=== PATIENT | female | born 1935 | race African-American/Black ===

== ENCOUNTER 2017-10-01 10:20 | Inpatient (IN) | payer MEDICARE, MEDICAID ==
--- NOTE | 2017-10-01 10:41 | ED Physician Chart ---
ED Chief Complaint/HPI - Patient Information Date Seen:: 10/01/17 Time Seen:: 10:20 Chief Complaint:: Weakness History of Present Illness:: onset x 3 days of Weakness, AMS, and ALOC with abnormal lab tests this morning; no report of LOC, trauma, H/As, S/T, neck pain, C/P, SOB, Abd. Pain, A/N/V/D/C, fever, chills, or urinary s/s Historian:: Patient, EMS Review:: Nurse's Note Reviewed, Old Chart Reviewed, EMS run form Reviewed ED Review of Systems - Review of Systems General/Constitutional: No fever, No chills, No weight loss, Weakness, No diaphoresis, No edema, No loss of appetite Skin: No skin lesions, No rash, No bruising Head: No headache, No light-headedness Eyes: No loss of vision, No pain, No diplopia ENT: No earache, No nasal drainage, No sore throat, No tinnitus Neck: No neck pain, No swelling, No thyromegaly, No stiffness, No mass noted Cardio Vascular: No chest pain, No palpitations, No PND, No orthopnea, No edema Pulmonary: No SOB, No cough, No sputum, No wheezing GI: No nausea, No vomiting, No diarrhea, No pain, No melena, No hematochezia, No constipation, No hematemesis G/U: No dysuria, No frequency, No hematuria, No nacturia Webmethods Architect: No vaginal discharge, No abnormal vaginal bleed, No contraction Musculoskeletal: No bone or joint pain, No back pain, No muscle pain Endocrine: No polyuria, No polydipsia Psychiatric: No prior psych history, No depression, No anxiety, No suicidal ideation, No homicidal ideation, No auditory hallucination, No visual hallucination Hematopoietic: No bruising, No lymphadenopathy Allergic/Immuno: No urticaria, No angioedema Neurological: No syncope, No focal symptoms, Weakness, No paresthesia, No headache, No seizure, No dizziness, Confusion, No vertigo ED Past Medical History - Past Medical History Obtainable: Yes Past Medical History: HTN, DM, CAD, Asthma/COPD, Dyslipidemia, PUD/GERD, Dementia Family History: Diabetes Melitus, HTN Social History: Non Smoker, No Alcohol, No Drug Use, , Care Facility Surgical History: other (Left BKA) Psychiatricy History: Dementia Medication: Reviewed Family Medical History - Family Member Mother History Unknown: Yes ED Physical Exam - Physical Examination General/Constitutional: Awake, Well-developed, well-nourished, Alert, No distress, GCS 15, Non-toxic appearing, Ambulatory Head: Atraumatic Eyes: Lids, conjuctiva normal, PERRL, EOMI Skin: Nl inspection, No rash, No skin lesions, No ecchymosis, Well hydrated, No lymphadenopathy ENMT: External ears, nose nl, TM canals nl, Nasal exam nl, Lips, teeth, gums nl , Oropharynx nl, Tonsils nl Neck: Nontender, Full ROM w/o pain, No JVD, No nuchal rigidity, No bruit, No mass, No stridor Respiratory: Nl effort/Exclusion, Clear to Auscultation, No Wheeze/Rhonchi/Rales Cardio Vascular: RRR, No murmur, gallop, rubs, NL S1 S2, Carotid/Femoral/Distal pulses equal bilaterally GI: No tenderness/rebounding/guarding, No organomegaly, No hernia, Normal BS's, Nondistended, No mass/bruits, No McBurney tenderness : No CVA tenderness Extremities: No tenderness or effusion, Full ROM, normal strength in all extremities, No edema, Normal digits & nails Neuro/Psych: Alert/oriented, DTR's symmetric, Normal sensory exam, Normal motor strength, Judgement/insight normal, Mood normal, Normal gait, No focal deficits Misc: Normal back, No paraspinal tenderness ED Labs/Radiology/EKG Results - Lab Results Comments:: H/H: 7.4/22.7; BUN: 34; Cr: 1.8; Na+: 134; U/A: + Pyuria - EKG Interpretations EKG Time:: 10:49 Rate & Rhythm: 76' NSR Comments:: non-specific st-t changes ED Septic Shock - . Is Septic Shock (SBP<90, OR Lactate>4 mmol\L) present?: No ED Reassessment (Disposition) - Reassessment Reassessment Condition:: Improved - Diagnosis Diagnosis:: Dx: Anemia; Weakness; UTI; Hyponatremia; GI Bleed; Dehydration - Aftercare/Follow up Instructions Aftercare/Follow-Up Instructions:: Counseled pt regarding lab results/diagnosis & need follow up, Counseled pt & family regarding lab results/diagnosis & need follow up - Patient Disposition Discharge/Transfer:: Acute Care w/in this hosp Accepting Physician:: Dr. Rush Time Called:: 1230 Time Responded:: 12:30 Admitted to:: Telemetry Spoke to:: Dr. Rush Admitting Medical Physician:: Dr. Rush Condition at Disposition:: Stable, Improved
[2017-10-01 11:15] LABS: % BASOPHILS 0.4 % (0.0-2.0); % EOSINOPHILS 2.5 % (0.0-5.0); % LYMPHOCYTES 33.2 % (20.0-50.0); % MONOCYTES 17.8 % (2.0-10.0); % NEUTROPHILS 46.1 % (40.0-80.0); EOSINOPHILE ABSOLUTE 0.2 Th/cmm (0.1-0.4); HEMATOCRIT 22.7 % (41.0-60); LYMPHOCYTE ABSOLUTE 2.1 Th/cmm (1.5-3.0); MEAN CELL VOLUME 99.2 fl (81-100); MEAN CORPUSCULAR HEMOGLOBIN 32.3 pg (27.0-31.0); MEAN CORPUSCULAR HGB CONC 32.6 pg (28.0-36.0); MEAN PLATELET VOLUME 6.1 fl; MONOCYTE ABSOLUTE 1.1 Th/cmm (0.3-1.0); NEUTROPHILE ABSOLUTE 2.8 Th/cmm (1.8-8.0); PLATELET COUNT 158 Th/cmm (150-400); RED BLOOD COUNT 2.29 Mil/cmm (3.80-5.20); RED CELL DISTRIBUTION WIDTH 17.5 % (11.5-20.0); WHITE BLOOD COUNT 6.2 Th/cmm (4.8-10.8)
[2017-10-01 11:17] LABS: HEMOGLOBIN 7.4 gm/dL (12-16)
[2017-10-01 11:17] LABS: URINE SOURCE MIDSTREAM
[2017-10-01 11:18] LABS: URINE MICROSCOPIC INDICATED? YES
[2017-10-01 11:19] LABS: INR 0.96 (0.5-1.4)
[2017-10-01 11:24] LABS: TROP I 0.01 ng/mL (0.01-0.05)
[2017-10-01 11:26] LABS: ALB/GLOB RATIO 0.6 (1.0-1.8); ALBUMIN 3.4 gm/dL (3.7-5.3); ALKALINE PHOSPHATASE 67 U/L (34-104); ANION GAP 12.9 (7.0-16.0); BILIRUBIN,TOTAL 0.3 mg/dL (0.3-1.0); BUN - UREA NITROGEN 34 mg/dL (7-25); CALCIUM SERUM 9.4 mg/dL (8.6-10.3); CARBON DIOXIDE 24.1 mEq/L (21.0-31.0); CHLORIDE 102 mEq/L (98-107); CREATININE - SERUM 1.8 mg/dL (0.6-1.2); CREATININE KINASE 41 U/L (30-223); GLUCOSE 134 mg/dL (70-105); SGOT 17 U/L (13-39); SGPT/ALT 6 U/L (7-52); SODIUM SERUM 134 mEq/L (136-145); TOTAL PROTEIN,SERUM 8.9 gm/dL (6.0-8.3)
[2017-10-01 11:38] LABS: URINE BILIRUBIN NEGATIVE (NEGATIVE); URINE CLARITY HAZY (CLEAR); URINE COLOR RED; URINE GLUCOSE (UA) NEGATIVE (NEGATIVE); URINE KETONE NEGATIVE (NEGATIVE)
[2017-10-01 11:39] LABS: URINE BLOOD LARGE (NEGATIVE); URINE PH 6.5 (4.6 - 8.0); URINE PROTEIN 30 mg/dL (NEGATIVE)
[2017-10-01 11:40] LABS: URINE LEUKOCYTE ESTERASE LARGE (NEGATIVE); URINE NITRATE POSITIVE (NEGATIVE)
[2017-10-01 11:43] LABS: URINE BACTERIA MANY /hpf (NONE SEEN); URINE EPITHELIAL CELLS FEW /lpf (FEW); URINE RBC >100 /hpf (0-5)
[2017-10-01] MEDS ORDERED: Mag Sulfate 2gm/50mL Premix 2 GM/50 ML BAG IV PRN (13:38)
[2017-10-01] MEDS ORDERED: Potassium Chloride 20 mEq ER Tab PO PRN (13:38)
[2017-10-01] MEDS ORDERED: Potassium Chloride 40 MEQ, Lidocaine 1% 20mL Vial 25 MG in Sodium Chloride 0.9% 250 ML IV PRN (13:38)
[2017-10-01] MEDS ORDERED: Morphine Sulfate 4 mg/mL 1mL Syr IVP PRN (13:38)
[2017-10-01] MEDS ORDERED: cefTRIAXone 1 GM in Sodium Chloride 0.9% 50 ML IV SCH (15:00)
[2017-10-01] MEDS ORDERED: KCL 20mEq/100mL Premix 40 MEQ/200 ML PIGGYBACK IV PRN (15:52)
[2017-10-01] MEDS: Sodium Chloride 0.9% 1,000 ML IV SCH (17:30)
[2017-10-01 18:35] VITALS: BP 119/60
[2017-10-02 05:56] LABS: ANION GAP 9.6 (7.0-16.0); BUN - UREA NITROGEN 32 mg/dL (7-25); CALCIUM SERUM 8.7 mg/dL (8.6-10.3); CARBON DIOXIDE 23.8 mEq/L (21.0-31.0); CHLORIDE 105 mEq/L (98-107); CREATININE - SERUM 1.8 mg/dL (0.6-1.2); GLUCOSE 91 mg/dL (70-105); POTASSIUM SERUM 4.4 mEq/L (3.5-5.1); SODIUM SERUM 134 mEq/L (136-145)
[2017-10-02] MEDS ORDERED: INSULIN ASPART SLIDING SCALE 100 UNITS/ML UNIT SUBQ SCH (07:30)
[2017-10-02] MEDS ORDERED: Sodium Chloride 0.9% 1,000 ML IV SCH (08:32)
[2017-10-02] MEDS: Sodium Chloride 0.9% 1,000 ML IV SCH (09:34)
[2017-10-02] MEDS: Ferrous Sulfate 325 MG TAB PO SCH (09:34)
--- NOTE | 2017-10-02 09:37 | History & Physical ---
ADMIT DATE: 10/01/2017 CHIEF COMPLAINT: Severe anemia and dysuria. HISTORY OF PRESENT ILLNESS: The patient is a pleasant 82-year-old female. She presents from group home facility. She has history of chronic pain, vitamin deficiency anemia, constipation and glaucoma. She had been experiencing dysuria and increased urinary frequency. On routine lab, she was also found to have severe anemia; however, it was slightly elevated in the ER. She was admitted for further workup and treatment. PAST MEDICAL HISTORY: Significant for vitamin deficiency anemia, coronary artery disease, malnutrition and glaucoma. SOCIAL HISTORY: Denies any alcohol, tobacco or drug abuse. FAMILY HISTORY: Noncontributory. ALLERGIES: No known drug allergies. SURGICAL HISTORY: No recent major surgeries. MEDICATIONS: Home medications reviewed and reconciled. REVIEW OF SYSTEMS: GENERAL: Positive recent fatigue, decreased appetite. HEENT: No recent head trauma or change in vision, taste, hearing, or smell. Oral, denies any pain or discharge. NECK: No recent tracheal deviation. ABDOMEN: No recent pain or distention. SKIN: She has history of poor turgor. MUSCULOSKELETAL: Positive for unsteady gait and muscle weakness. PSYCHIATRIC: No history of psychosis or hallucinations. EYES: She has history of glaucoma. GENITOURINARY: Positive for recent dysuria, increased urinary frequency. NEUROLOGIC: No recent seizure or CV activity. PHYSICAL EXAMINATION: VITAL SIGNS: Temperature 96.9 degrees, heart rate is 76, respirations are 18, blood pressure 112/58. Currently, no pain. GENERAL: No acute distress, awake, pleasant, alert. HEENT: No acute issues. NECK: Trachea is midline. CARDIOVASCULAR: Regular rate and rhythm. ABDOMEN: Nontender, nondistended. SKIN: Poor turgor. MUSCULOSKELETAL: She appears cachectic. She has decreased muscle strength in upper and lower extremities. NEUROLOGIC: Stable. PSYCHIATRIC: No psychosis or hallucinations. RESPIRATORY: Decreased breath sounds bilaterally. GENITOURINARY: No hematuria is noted. ABDOMEN: No pain or distention. Bowel sounds are present. LABORATORY DATA AND DIAGNOSTIC STUDIES: UA is positive for UTI. White count of 6.2, hemoglobin is 7.4, platelet count is 158,000. Sodium 134, potassium 5.0, chloride 102, bicarb 24.1, BUN 34, creatinine 1.8, glucose 116. Chest x-ray is pending and repeat CBC for today is pending as well. ASSESSMENT: 1. Severe anemia. 2. Vasomotor nephropathy. 3. Hyponatremia. 4. Urinary tract infection. 5. Unsteady gait. 6. Muscle weakness. PLAN: The patient is on IV fluids and Rocephin 1 g IV daily. Follow up on stool occult blood. I will order SCDs, hold heparin. I will also follow up on the repeat CBC and stool occult blood as well. Discussed care plan with the patient. Chest x-ray has been ordered as well. JOB# [id number]
[2017-10-02] MEDS ORDERED: Probiotic Screen MC PRN (10:18)
[2017-10-02] MEDS: Lactobacillus Rhamnosus GG 15 Billion CFU CAP.SPRINK PO SCH (10:48)
--- NOTE | 2017-10-02 13:31 | Diagnostic Imaging Report ---
Portable chest x-ray HISTORY: Shortness of breath The heart size appears generous. Atherosclerotic calcification seen in the aorta. The lungs are hyperexpanded along with accentuation of the lower interstitial lung markings. Findings may be associated with COPD. A linear density is noted in the right lower lobe that may be associated with scarring or subsegmental atelectasis. No other focal processes. Mild scoliosis and diffuse degenerative changes seen to the spine. IMPRESSION: 1. Pulmonary hyperexpansion along with accentuation of the lower interstitial lung markings. Findings may be associated with COPD 2. Linear density within the right lower lobe that may be associated with scarring or subsegmental atelectasis 3. Cardiomegaly with atherosclerotic vascular changes
[2017-10-03] MEDS: Sodium Chloride 0.9% 1,000 ML IV SCH ×2 (01:50→23:17)
[2017-10-03 07:50] LABS: ANION GAP 8.5 (7.0-16.0); BUN - UREA NITROGEN 27 mg/dL (7-25); CALCIUM SERUM 8.6 mg/dL (8.6-10.3); CARBON DIOXIDE 21.9 mEq/L (21.0-31.0); CHLORIDE 111 mEq/L (98-107); CREATININE - SERUM 1.6 mg/dL (0.6-1.2); GLUCOSE 101 mg/dL (70-105); POTASSIUM SERUM 4.4 mEq/L (3.5-5.1); SODIUM SERUM 137 mEq/L (136-145)
--- NOTE | 2017-10-03 09:01 | General Progress Note ---
Subjective - Review of Systems Service Date: 10/03/17 Subjective: Pt seen and eval. Resting in bed. No n,v,d or cp. Stool collected this am for occult blood. No fevers or chills. Objective - Results Result Diagrams: 10/01/17 11:00 10/03/17 06:00 Recent Labs: Laboratory Last Values WBC 6.2 Th/cmm (4.8-10.8) 10/01/17 11:00 RBC 2.29 Mil/cmm (3.80-5.20) L 10/01/17 11:00 Hgb 7.4 gm/dL (12-16) L* 10/01/17 11:00 Hct 22.7 % (41.0-60) L 10/01/17 11:00 MCV 99.2 fl (81-100) 10/01/17 11:00 MCH 32.3 pg (27.0-31.0) H 10/01/17 11:00 MCHC Differential 32.6 pg (28.0-36.0) 10/01/17 11:00 RDW 17.5 % (11.5-20.0) 10/01/17 11:00 Plt Count 158 Th/cmm (150-400) 10/01/17 11:00 MPV 6.1 fl 10/01/17 11:00 Neutrophils % 46.1 % (40.0-80.0) 10/01/17 11:00 Lymphocytes % 33.2 % (20.0-50.0) 10/01/17 11:00 Monocytes % 17.8 % (2.0-10.0) H 10/01/17 11:00 Eosinophils % 2.5 % (0.0-5.0) 10/01/17 11:00 Basophils % 0.4 % (0.0-2.0) 10/01/17 11:00 PT 10.0 SECONDS (9.5-11.5) 10/01/17 11:00 INR 0.96 (0.5-1.4) 10/01/17 11:00 PTT (Actin FS) 25.7 SECONDS (26.0-38.0) L 10/01/17 11:00 Sodium 137 mEq/L (136-145) 10/03/17 06:00 Potassium 4.4 mEq/L (3.5-5.1) 10/03/17 06:00 Chloride 111 mEq/L (98-107) H 10/03/17 06:00 Carbon Dioxide 21.9 mEq/L (21.0-31.0) 10/03/17 06:00 Anion Gap 8.5 (7.0-16.0) 10/03/17 06:00 BUN 27 mg/dL (7-25) H 10/03/17 06:00 Creatinine 1.6 mg/dL (0.6-1.2) H 10/03/17 06:00 Est GFR ( Amer) TNP 10/03/17 06:00 Est GFR (Non-Af Amer) TNP 10/03/17 06:00 BUN/Creatinine Ratio 16.9 10/03/17 06:00 Glucose 101 mg/dL (70-105) 10/03/17 06:00 POC Glucose 116 MG/DL (70 - 105) H 10/02/17 07:35 Whole Bld Lactic Acid 1.68 mmol/L (0.60-1.99) 10/01/17 11:00 Calcium 8.6 mg/dL (8.6-10.3) 10/03/17 06:00 Magnesium 2.0 mg/dL (1.9-2.7) 10/01/17 11:00 Total Bilirubin 0.3 mg/dL (0.3-1.0) 10/01/17 11:00 AST 17 U/L (13-39) 10/01/17 11:00 ALT 6 U/L (7-52) L 10/01/17 11:00 Alkaline Phosphatase 67 U/L (34-104) 10/01/17 11:00 Creatine Kinase 41 U/L (30-223) 10/01/17 11:00 Troponin I 0.01 ng/mL (0.01-0.05) 10/01/17 11:00 Total Protein 8.9 gm/dL (6.0-8.3) H 10/01/17 11:00 Albumin 3.4 gm/dL (3.7-5.3) L 10/01/17 11:00 Globulin 5.5 gm/dL 10/01/17 11:00 Albumin/Globulin Ratio 0.6 (1.0-1.8) L 10/01/17 11:00 Urine Source MIDSTREAM 10/01/17 11:10 Urine Color RED 10/01/17 11:10 Urine Clarity HAZY (CLEAR) 10/01/17 11:10 Urine pH 6.5 (4.6 - 8.0) 10/01/17 11:10 Ur Specific [place] 1.015 (1.005-1.030) 10/01/17 11:10 Urine Protein 30 mg/dL (NEGATIVE) H 10/01/17 11:10 Urine Glucose (UA) NEGATIVE mg/dL (NEGATIVE) 10/01/17 11:10 Urine Ketones NEGATIVE mg/dL (NEGATIVE) 10/01/17 11:10 Urine Blood LARGE (NEGATIVE) H 10/01/17 11:10 Urine Nitrate POSITIVE (NEGATIVE) H 10/01/17 11:10 Urine Bilirubin NEGATIVE (NEGATIVE) 10/01/17 11:10 Urine Urobilinogen 1.0 E.U./dL (0.2 - 1.0) 10/01/17 11:10 Ur Leukocyte Esterase LARGE (NEGATIVE) H 10/01/17 11:10 Urine RBC >100 /hpf (0-5) H 10/01/17 11:10 Urine WBC 6-10 /hpf (0-5) H 10/01/17 11:10 Ur Epithelial Cells FEW /lpf (FEW) 10/01/17 11:10 Urine Bacteria MANY /hpf (NONE SEEN) H 10/01/17 11:10 - Physical Exam Vitals and I&O: Vital Signs Temp 98.0 F 10/03/17 07:41 Pulse 87 10/03/17 07:41 Resp 19 10/03/17 07:41 BP 129/58 10/03/17 07:41 Pulse Ox 97 10/03/17 07:41 Intake & Output 10/02/17 10/03/17 10/03/17 18:59 06:59 18:59 Intake Total 500 1300 Output Total 0 Balance 500 1300 Weight (lbs) 37.648 kg 44.316 kg Intake: Intake, IV Amount 1050 Sodium Chloride 0.9% 1, 1000 000 ml @ 75 mls/hr IV . [id number] [facility] Rx#:[id number] cefTRIAXone 1 gm In 50 Dextrose 5% 50 ml @ 100 mls/hr IV Q24HR [facility] Rx#: [id number] Oral 500 250 Output: Stool 0 Other: # Voids 2 2 # Bowel Movements 0 Weight Source Bedscale Bedscale Active Medications: Current Medications Acetaminophen (Tylenol) 650 mg PO Q6H PRN PRN Reason: HEADACHE/TEMP ABOVE 100F Stop: 11/30/17 13:37 Brimonidine Tartrate (Alphagan 0.2% Ophth Soln) 1 drop EACH EYE BID [facility] Stop: 11/30/17 16:59 Last Admin: 10/02/17 16:49 Dose: 1 drop Dorzolamide HCl (Trusopt 2% Ophth Soln) 1 drop EACH EYE BID [facility] Stop: 11/30/17 16:59 Last Admin: 10/02/17 16:49 Dose: 1 drop Ferrous Sulfate (Iron) 325 mg PO DAILY [facility] Stop: 12/01/17 08:59 Last Admin: 10/02/17 09:34 Dose: 325 mg Ceftriaxone Sodium 1 gm/ (Dextrose) 50 mls @ 100 mls/hr IV Q24HR [facility] Stop: 11/30/17 14:59 Last Infusion: 10/02/17 19:55 Dose: Infused Magnesium Sulfate (Magnesium Sulfate Premix) 2 gm in 50 mls @ 25 mls/hr IV DAILY PRN PRN Reason: Magnesium level less than 1.6 Stop: 11/30/17 13:37 Sodium Chloride (Nacl 0.9%) 1,000 mls @ 75 mls/hr IV .[id number] [facility] Stop: 11/30/17 13:59 Last Admin: 10/03/17 01:50 Dose: 75 mls/hr Potassium Chloride (Potassium Chloride) 40 meq in 200 mls @ 50 mls/hr IV DAILY PRN PRN Reason: K < 3.2 Stop: 11/30/17 15:51 Lactobacillus Rhamnosus (Culturelle 15b) 1 each PO DAILY [facility] Stop: 12/01/17 10:59 Last Admin: 10/02/17 10:48 Dose: 1 each Latanoprost (Xalatan 0.005% Oph Soln) 1 drop EACH EYE DAILY [facility] Stop: 12/01/17 08:59 Last Admin: 10/02/17 10:48 Dose: 1 drop Lorazepam (Ativan) 1 mg IVP Q4HR PRN; Protocol PRN Reason: Anxiety Stop: 11/30/17 13:37 Magnesium Oxide (Mag-Oxide) 400 mg PO BID PRN PRN Reason: Mg less than 1.9 Stop: 11/30/17 13:37 Metoprolol Tartrate (Lopressor) 25 mg PO BID [facility] Stop: 11/30/17 16:59 Last Admin: 10/02/17 16:49 Dose: 25 mg Miscellaneous (Probiotic Screen) 1 ea MC PRN PRN PRN Reason: PROTOCOL Stop: 12/01/17 10:17 Morphine Sulfate (Morphine) 1 mg IVP Q4H PRN PRN Reason: Severe Pain Stop: 11/30/17 13:37 Mupirocin (Bactroban Oint) 1 appl NS BID [facility] Stop: 10/07/17 09:01 Last Admin: 10/02/17 16:49 Dose: 1 appl Ondansetron HCl (Zofran) 4 mg IVP Q6H PRN PRN Reason: Nausea / Vomiting Stop: 11/30/17 13:37 Potassium Chloride (Klor-Con) 40 meq PO DAILY PRN PRN Reason: k level less than 3.5 Stop: 11/30/17 13:37 Zolpidem Tartrate (Ambien) 10 mg PO HS PRN PRN Reason: Insomnia Stop: 11/30/17 13:37 General: Cooperative, No acute distress HEENT: PERRLA Neck: Supple, JVD Cardiovascular: Regular rate, Normal S1, Normal S2 Lungs: Clear to auscultation Assessment/Plan - Assessment Assessment: UTI Severe Anemia VMN Hyponatremia Muscle weakness Unsteady gait - Plan Plan: on Rocephin 1 gm IV daily. FU on urine culture. On iv fluids. FU on CBC today. FU on stool OB. Nutritional Asmnt/Malnutr-PDOC - Dietary Evaluation Malnutrition Findings (Please click <Entered> for more info): Nutritional Asmnt/Malnutrition Start: 10/02/17 17: 19 Text: Status: Complete Freq: Protocol: Document 10/02/17 17:19 LCHENG (Rec: 10/02/17 17:33 [email or web address]) Nutritional Asmnt/Malnutrition Patient General Information Nutritional Screening High Risk Consult Diagnosis severe anemia Pertinent Medical Hx/Surgical Hx CAD, malnutrition, anemia, glaucauma Subjective Information Consult received for low weight. BMI 14 noted. Pt seen lying in bed at time of visit, awake and alert. Pt stated appetite no good. Pt has no teeth noted, but pt denied chowing problem on regular textured food. Per EMR, PO intake 50% of dinner last night. Pt appeared very skinny , visible fat wasting under cheek bone. Current Diet Order/ Nutrition Support regular Pertinent Medications Iron, culturelle, nacl 0.9% Pertinent Labs 10/02 Na 134, BUN 32, Cr 1.8, glucose 91, POC 116 10/01 glucose 134 Nutritional Hx/Data Height 1.63 m Height (Calculated Centimeters) 162.6 Current Weight (lbs) 37.648 kg Weight (Calculated Kilograms) 37.6 Weight (Calculated Grams) 62958.2 [place] Body Weight 120 % [place] Body Weight 69 Body Mass Index (BMI) 14.2 Weight Status Approriate GI Symptoms GI Symptoms None Last BM not indicated Difficult in: None Skin Integrity/Comment: scar to coccyx, scab to 2nd toe Current %PO Poor (25-49%) Estimated Nutritional Goals BEE in Kcals: Using Current wt Calories/Kcals/Kg 30-35 Kcals Calculated [id number] Protein: Using Current wt Protein g/k.2-1.4 Protein Calculated 46-53 Fluid: ml 1140-1330ml (1ml/kcal) Nutritional Problem 1. Problem Problem underweight Etiology hx of malnutrition Signs/Symptoms: BMI 14 Malnutrition Alert Body Fat Depletion (Severe) Mod to Severe Depletion Muscle Mass (Non-Severe) Mild Depletion Is there a minimum of two criteria Yes selected? Query Text:Check all the applicable criteria. A minimum of two criteria are recommended for diagnosis of either severe or non-severe malnutrition. Malnutrition Related to Morbid Obesity Malnutrition related to morbid obesity No Intervention/Recommendation Comments 1. Recommend [facility] soft chopped food d/t pt has no teeth. Add Boost Plus BID with breakfast and lunch, magic cup with dinner. [facility] notified. 2. Monitor PO intake, wt, labs and skin integrity 3. F/U as high risk in 2-3 days, 10/04-10/05 Expected Outcomes/Goals Expected Outcomes/Goals 1. PO intake to meet at least 75% of nutritional needs. 2. Wt stability, change forward to IBW, skin to remain intact, labs to approach WNL.
[2017-10-03] MEDS: Lactobacillus Rhamnosus GG 15 Billion CFU CAP.SPRINK PO SCH (09:05)
[2017-10-03] MEDS: Ferrous Sulfate 325 MG TAB PO SCH (09:05)
[2017-10-03 10:26] LABS: EOSINOPHILE ABSOLUTE 0.2 Th/cmm (0.1-0.4); LYMPHOCYTE ABSOLUTE 1.7 Th/cmm (1.5-3.0); MANUAL DIFF REQUIRED? YES; MEAN CELL VOLUME 100.1 fl (81-100); MEAN CORPUSCULAR HEMOGLOBIN 32.9 pg (27.0-31.0); MEAN CORPUSCULAR HGB CONC 32.9 pg (28.0-36.0); MEAN PLATELET VOLUME 6.1 fl; MONOCYTE ABSOLUTE 0.9 Th/cmm (0.3-1.0); NEUTROPHILE ABSOLUTE 2.3 Th/cmm (1.8-8.0); PLATELET COUNT 133 Th/cmm (150-400); RED BLOOD COUNT 2.05 Mil/cmm (3.80-5.20); RED CELL DISTRIBUTION WIDTH 17.5 % (11.5-20.0); WHITE BLOOD COUNT 5.1 Th/cmm (4.8-10.8)
[2017-10-03 10:32] LABS: HEMATOCRIT 20.6 % (41.0-60); HEMOGLOBIN 6.8 gm/dL (12-16)
[2017-10-03 11:09] LABS: BAND NEUTROPHILE 2 % (0-10); BASOPHIL 1 % (0-3); EOSINOPHIL 2 % (0-5); LYMPHOCYTE 33 % (20-50); MONOCYTE 12 % (2-10); NEUTROPHILS 50 % (40-80); TOTAL CELLS COUNTED 100
[2017-10-03 11:10] LABS: PLATELET ESTIMATE ADEQUATE (NORMAL)
[2017-10-04] MEDS ORDERED: Albuterol/Ipratropium Neb 3 ML AERS HHN PRN (01:32)
[2017-10-04] MEDS: Guaifenesin DM 10 ML UDC PO PRN (01:46)
[2017-10-04 07:35] LABS: EOSINOPHILE ABSOLUTE 0.2 Th/cmm (0.1-0.4); LYMPHOCYTE ABSOLUTE 2.1 Th/cmm (1.5-3.0); MEAN CELL VOLUME 94.1 fl (81-100); MEAN CORPUSCULAR HEMOGLOBIN 31.6 pg (27.0-31.0); MEAN CORPUSCULAR HGB CONC 33.6 pg (28.0-36.0); MEAN PLATELET VOLUME 6.6 fl; MONOCYTE ABSOLUTE 1.1 Th/cmm (0.3-1.0); NEUTROPHILE ABSOLUTE 2.9 Th/cmm (1.8-8.0); PLATELET COUNT 123 Th/cmm (150-400); RED CELL DISTRIBUTION WIDTH 20.7 % (11.5-20.0)
[2017-10-04 07:40] LABS: WHITE BLOOD COUNT 6.3 Th/cmm (4.8-10.8)
[2017-10-04 07:41] LABS: % EOSINOPHILS 3.1 % (0.0-5.0); % LYMPHOCYTES 32.7 % (20.0-50.0); % MONOCYTES 17.5 % (2.0-10.0); % NEUTROPHILS 46.5 % (40.0-80.0); HEMATOCRIT 30.1 % (41.0-60); HEMOGLOBIN 10.1 gm/dL (12-16)
[2017-10-04 07:42] LABS: % BASOPHILS 0.2 % (0.0-2.0)
[2017-10-04 07:48] LABS: ANION GAP 10.7 (7.0-16.0); BUN - UREA NITROGEN 22 mg/dL (7-25); CALCIUM SERUM 8.8 mg/dL (8.6-10.3); CARBON DIOXIDE 20.9 mEq/L (21.0-31.0); CHLORIDE 110 mEq/L (98-107); CREATININE - SERUM 1.5 mg/dL (0.6-1.2); GLUCOSE 102 mg/dL (70-105); POTASSIUM SERUM 4.6 mEq/L (3.5-5.1); SODIUM SERUM 137 mEq/L (136-145)
[2017-10-04] MEDS: Ferrous Sulfate 325 MG TAB PO SCH (08:32)
[2017-10-04] MEDS: Lactobacillus Rhamnosus GG 15 Billion CFU CAP.SPRINK PO SCH (08:32)
--- NOTE | 2017-10-04 11:09 | General Progress Note ---
Subjective - Review of Systems Service Date: 10/04/17 Events since last encounter: The patient was scheduled to have an EGD and colonoscopy today, however, she refused stating that she's had one not too long ago. We'll request records from [facility] [place]. The patient is having difficulty tolerating oral intake due to lack of appetite. She's been on multiple appetite stimulants over the last 2 months at [facility], however, it has not increased her appetite. I had a long discussion with her bedside about possible G-tube placement versus hospice. She would like to consider her options and she will inform the medical staff of which route she would like to take. Subjective: The patient was seen and evaluated. The patient does not appear to be in any acute pain or distress. Denies chest pain, shortness of breath, abdominal pain , dysuria, or falls Objective - Results Result Diagrams: 10/04/17 06:00 10/04/17 06:00 Recent Labs: Laboratory Last Values WBC 6.3 Th/cmm (4.8-10.8) D 10/04/17 06:00 RBC 3.20 Mil/cmm (3.80-5.20) L 10/04/17 06:00 Hgb 10.1 gm/dL (12-16) L D 10/04/17 06:00 Hct 30.1 % (41.0-60) L D 10/04/17 06:00 MCV 94.1 fl (81-100) 10/04/17 06:00 MCH 31.6 pg (27.0-31.0) H 10/04/17 06:00 MCHC Differential 33.6 pg (28.0-36.0) 10/04/17 06:00 RDW 20.7 % (11.5-20.0) H 10/04/17 06:00 Plt Count 123 Th/cmm (150-400) L 10/04/17 06:00 MPV 6.6 fl 10/04/17 06:00 Neutrophils % 46.5 % (40.0-80.0) 10/04/17 06:00 Band Neutrophils % 2 % (0-10) 10/03/17 09:40 Lymphocytes % 32.7 % (20.0-50.0) 10/04/17 06:00 Monocytes % 17.5 % (2.0-10.0) H 10/04/17 06:00 Eosinophils % 3.1 % (0.0-5.0) 10/04/17 06:00 Basophils % 0.2 % (0.0-2.0) 10/04/17 06:00 Neutrophils (Manual) 50 % (40-80) 10/03/17 09:40 Lymphocytes 33 % (20-50) 10/03/17 09:40 Monocytes 12 % (2-10) H 10/03/17 09:40 Eosinophils 2 % (0-5) 10/03/17 09:40 Basophils 1 % (0-3) 10/03/17 09:40 Platelet Estimate ADEQUATE (NORMAL) 10/03/17 09:40 PT 10.0 SECONDS (9.5-11.5) 10/01/17 11:00 INR 0.96 (0.5-1.4) 10/01/17 11:00 PTT (Actin FS) 25.7 SECONDS (26.0-38.0) L 10/01/17 11:00 Sodium 137 mEq/L (136-145) 10/04/17 06:00 Potassium 4.6 mEq/L (3.5-5.1) 10/04/17 06:00 Chloride 110 mEq/L (98-107) H 10/04/17 06:00 Carbon Dioxide 20.9 mEq/L (21.0-31.0) L 10/04/17 06:00 Anion Gap 10.7 (7.0-16.0) 10/04/17 06:00 BUN 22 mg/dL (7-25) 10/04/17 06:00 Creatinine 1.5 mg/dL (0.6-1.2) H 10/04/17 06:00 Est GFR ( Amer) TNP 10/04/17 06:00 Est GFR (Non-Af Amer) TNP 10/04/17 06:00 BUN/Creatinine Ratio 14.7 10/04/17 06:00 Glucose 102 mg/dL (70-105) 10/04/17 06:00 POC Glucose 116 MG/DL (70 - 105) H 10/02/17 07:35 Whole Bld Lactic Acid 1.68 mmol/L (0.60-1.99) 10/01/17 11:00 Calcium 8.8 mg/dL (8.6-10.3) 10/04/17 06:00 Magnesium 2.0 mg/dL (1.9-2.7) 10/01/17 11:00 Total Bilirubin 0.3 mg/dL (0.3-1.0) 10/01/17 11:00 AST 17 U/L (13-39) 10/01/17 11:00 ALT 6 U/L (7-52) L 10/01/17 11:00 Alkaline Phosphatase 67 U/L (34-104) 10/01/17 11:00 Creatine Kinase 41 U/L (30-223) 10/01/17 11:00 Troponin I 0.01 ng/mL (0.01-0.05) 10/01/17 11:00 Total Protein 8.9 gm/dL (6.0-8.3) H 10/01/17 11:00 Albumin 3.4 gm/dL (3.7-5.3) L 10/01/17 11:00 Globulin 5.5 gm/dL 10/01/17 11:00 Albumin/Globulin Ratio 0.6 (1.0-1.8) L 10/01/17 11:00 Urine Source MIDSTREAM 10/01/17 11:10 Urine Color RED 10/01/17 11:10 Urine Clarity HAZY (CLEAR) 10/01/17 11:10 Urine pH 6.5 (4.6 - 8.0) 10/01/17 11:10 Ur Specific [place] 1.015 (1.005-1.030) 10/01/17 11:10 Urine Protein 30 mg/dL (NEGATIVE) H 10/01/17 11:10 Urine Glucose (UA) NEGATIVE mg/dL (NEGATIVE) 10/01/17 11:10 Urine Ketones NEGATIVE mg/dL (NEGATIVE) 10/01/17 11:10 Urine Blood LARGE (NEGATIVE) H 10/01/17 11:10 Urine Nitrate POSITIVE (NEGATIVE) H 10/01/17 11:10 Urine Bilirubin NEGATIVE (NEGATIVE) 10/01/17 11:10 Urine Urobilinogen 1.0 E.U./dL (0.2 - 1.0) 10/01/17 11:10 Ur Leukocyte Esterase LARGE (NEGATIVE) H 10/01/17 11:10 Urine RBC >100 /hpf (0-5) H 10/01/17 11:10 Urine WBC 6-10 /hpf (0-5) H 10/01/17 11:10 Ur Epithelial Cells FEW /lpf (FEW) 10/01/17 11:10 Urine Bacteria MANY /hpf (NONE SEEN) H 10/01/17 11:10 Stool Occult Blood POSITIVE (NEGATIVE) H 10/03/17 07:57 Blood Type A POSITIVE 10/03/17 12:40 Antibody Screen NEGATIVE 10/03/17 12:40 Crossmatch See Detail 10/03/17 12:40 - Physical Exam Vitals and I&O: Vital Signs Temp 96.1 F 10/04/17 07:42 Pulse 82 10/04/17 10:38 Resp 18 10/04/17 10:38 BP 146/86 10/04/17 08:32 Pulse Ox 99 10/04/17 10:38 Intake & Output 10/03/17 10/04/17 10/04/17 18:59 06:59 18:59 Intake Total 1050 250 Balance 1050 250 Weight (lbs) 37.648 kg 40.823 kg Intake: Intake, IV Amount 1050 Sodium Chloride 0.9% 1, 1000 000 ml @ 75 mls/hr IV . [id number] [facility] Rx#:[id number] cefTRIAXone 1 gm In 50 Dextrose 5% 50 ml @ 100 mls/hr IV Q24HR [facility] Rx#: [id number] Oral 250 Other: # Voids 3 Weight Source Bedscale Bedscale Active Medications: Current Medications Acetaminophen (Tylenol) 650 mg PO Q6H PRN PRN Reason: HEADACHE/TEMP ABOVE 100F Stop: 11/30/17 13:37 Albuterol/Ipratropium (Duoneb Neb) 3 ml HHN Q4HRT PRN PRN Reason: Shortness of Breath Stop: 12/03/17 01:31 Brimonidine Tartrate (Alphagan 0.2% Ophth Soln) 1 drop EACH EYE BID [facility] Stop: 11/30/17 16:59 Last Admin: 10/04/17 08:32 Dose: 1 drop Dorzolamide HCl (Trusopt 2% Ophth Soln) 1 drop EACH EYE BID [facility] Stop: 11/30/17 16:59 Last Admin: 10/04/17 08:32 Dose: 1 drop Ferrous Sulfate (Iron) 325 mg PO DAILY DEEPA Stop: 12/01/17 08:59 Last Admin: 10/04/17 08:32 Dose: 325 mg Guaifenesin/Dextromethorphan (Robitussin Dm) 10 ml PO Q4H PRN PRN Reason: Cough Stop: 12/03/17 01:30 Last Admin: 10/04/17 01:46 Dose: 10 ml Ceftriaxone Sodium 1 gm/ (Dextrose) 50 mls @ 100 mls/hr IV Q24HR DEEPA Stop: 11/30/17 14:59 Last Infusion: 10/03/17 17:59 Dose: Infused Magnesium Sulfate (Magnesium Sulfate Premix) 2 gm in 50 mls @ 25 mls/hr IV DAILY PRN PRN Reason: Magnesium level less than 1.6 Stop: 11/30/17 13:37 Sodium Chloride (Nacl 0.9%) 1,000 mls @ 75 mls/hr IV .[id number] [facility] Stop: 11/30/17 13:59 Last Admin: 10/03/17 23:17 Dose: 75 mls/hr Potassium Chloride (Potassium Chloride) 40 meq in 200 mls @ 50 mls/hr IV DAILY PRN PRN Reason: K < 3.2 Stop: 11/30/17 15:51 Lactobacillus Rhamnosus (Culturelle 15b) 1 each PO DAILY [facility] Stop: 12/01/17 10:59 Last Admin: 10/04/17 08:32 Dose: 1 each Latanoprost (Xalatan 0.005% Ophth Soln) 1 drop EACH EYE DAILY [facility] Stop: 12/01/17 08:59 Last Admin: 10/04/17 08:32 Dose: 1 drop Lorazepam (Ativan) 1 mg IVP Q4HR PRN; Protocol PRN Reason: Anxiety Stop: 11/30/17 13:37 Last Admin: 10/04/17 02:34 Dose: 1 mg Magnesium Oxide (Mag-Oxide) 400 mg PO BID PRN PRN Reason: Mg less than 1.9 Stop: 11/30/17 13:37 Metoprolol Tartrate (Lopressor) 25 mg PO BID [facility] Stop: 11/30/17 16:59 Last Admin: 10/04/17 08:32 Dose: 25 mg Miscellaneous (Probiotic Screen) 1 ea MC PRN PRN PRN Reason: PROTOCOL Stop: 12/01/17 10:17 Morphine Sulfate (Morphine) 1 mg IVP Q4H PRN PRN Reason: Severe Pain Stop: 11/30/17 13:37 Mupirocin (Bactroban Oint) 1 appl NS BID DEEPA Stop: 10/07/17 09:01 Last Admin: 10/04/17 08:32 Dose: 1 appl Ondansetron HCl (Zofran) 4 mg IVP Q6H PRN PRN Reason: Nausea / Vomiting Stop: 11/30/17 13:37 Potassium Chloride (Klor-Con) 40 meq PO DAILY PRN PRN Reason: k level less than 3.5 Stop: 11/30/17 13:37 Zolpidem Tartrate (Ambien) 10 mg PO HS PRN PRN Reason: Insomnia Stop: 11/30/17 13:37 General: Cooperative, No acute distress, Other (cachectic, temporal wasting) HEENT: PERRLA Neck: Supple, JVD Cardiovascular: Regular rate, Normal S1, Normal S2 Lungs: Clear to auscultation Abdomen: Bowel sounds, Soft Extremities: Other (no edema, atrophied muscles) Neurological: Other (muscle strength 4/5) Assessment/Plan - Assessment Assessment: UTI Severe Anemia VMN Hyponatremia Muscle weakness Unsteady gait - Plan Plan: The patient was scheduled to have an EGD and colonoscopy today, however, she refused stating that she's had one not too long ago. We'll request records from [facility] [place]. The patient is having difficulty tolerating oral intake due to lack of appetite. She's been on multiple appetite stimulants over the last 2 months at [facility], however, it has not increased her appetite. I had a long discussion with her bedside about possible G-tube placement versus hospice. She would like to consider her options and she will inform the medical staff of which route she would like to take. Nutritional Asmnt/Malnutr-PDOC - Dietary Evaluation Malnutrition Findings (Please click <Entered> for more info): Nutritional Asmnt/Malnutrition Start: 10/02/17 17: 19 Text: Status: Complete Freq: Protocol: Document 10/02/17 17:19 [id number] (Rec: 10/02/17 17:33 [email or web address]) Nutritional Asmnt/Malnutrition Patient General Information Nutritional Screening High Risk Consult Diagnosis severe anemia Pertinent Medical Hx/Surgical Hx CAD, malnutrition, anemia, glaucauma Subjective Information Consult received for low weight. BMI 14 noted. Pt seen lying in bed at time of visit, awake and alert. Pt stated appetite no good. Pt has no teeth noted, but pt denied chowing problem on regular textured food. Per EMR, PO intake 50% of dinner last night. Pt appeared very skinny , visible fat wasting under cheek bone. Current Diet Order/ Nutrition Support regular Pertinent Medications Iron, culturelle, nacl 0.9% Pertinent Labs 10/02 Na 134, BUN 32, Cr 1.8, glucose 91, POC 116 10/01 glucose 134 Nutritional Hx/Data Height 1.63 m Height (Calculated Centimeters) 162.6 Current Weight (lbs) 37.648 kg Weight (Calculated Kilograms) 37.6 Weight (Calculated Grams) 23372.2 [place] Body Weight 120 % [place] Body Weight 69 Body Mass Index (BMI) 14.2 Weight Status Approriate GI Symptoms GI Symptoms None Last BM not indicated Difficult in: None Skin Integrity/Comment: scar to coccyx, scab to 2nd toe Current %PO Poor (25-49%) Estimated Nutritional Goals BEE in Kcals: Using Current wt Calories/Kcals/Kg 30-35 Kcals Calculated 2194-7845 Protein: Using Current wt Protein g/k.2-1.4 Protein Calculated 46-53 Fluid: ml 1140-1330ml (1ml/kcal) Nutritional Problem 1. Problem Problem underweight Etiology hx of malnutrition Signs/Symptoms: BMI 14 Malnutrition Alert Body Fat Depletion (Severe) Mod to Severe Depletion Muscle Mass (Non-Severe) Mild Depletion Is there a minimum of two criteria Yes selected? Query Text:Check all the applicable criteria. A minimum of two criteria are recommended for diagnosis of either severe or non-severe malnutrition. Malnutrition Related to Morbid Obesity Malnutrition related to morbid obesity No Intervention/Recommendation Comments 1. Recommend mech soft chopped food d/t pt has no teeth. Add Boost Plus BID with breakfast and lunch, magic cup with dinner. CB Randall notified. 2. Monitor PO intake, wt, labs and skin integrity 3. F/U as high risk in 2-3 days, 10/04-10/05 Expected Outcomes/Goals Expected Outcomes/Goals 1. PO intake to meet at least 75% of nutritional needs. 2. Wt stability, change forward to IBW, skin to remain intact, labs to approach WNL.
[2017-10-04] MEDS: Sodium Chloride 0.9% 1,000 ML IV SCH (13:03)
[2017-10-04] MEDS: D5-0.9%NS 1,000 ML IV SCH (21:17)
[2017-10-05] MEDS: Guaifenesin DM 10 ML UDC PO PRN ×2 (01:23→17:42)
[2017-10-05 07:29] LABS: HEMATOCRIT 29.4 % (41.0-60); HEMOGLOBIN 9.8 gm/dL (12-16); MANUAL DIFF REQUIRED? YES; MEAN CELL VOLUME 96.6 fl (81-100); MEAN CORPUSCULAR HGB CONC 33.2 pg (28.0-36.0); MEAN PLATELET VOLUME 6.4 fl; PLATELET COUNT 106 Th/cmm (150-400); RED BLOOD COUNT 3.05 Mil/cmm (3.80-5.20); RED CELL DISTRIBUTION WIDTH 20.5 % (11.5-20.0); WHITE BLOOD COUNT 4.8 Th/cmm (4.8-10.8)
[2017-10-05 08:14] LABS: BAND NEUTROPHILE 0 % (0-10); LYMPHOCYTE 34 % (20-50); NEUTROPHILS 50 % (40-80); TOTAL CELLS COUNTED 100
[2017-10-05 08:15] LABS: ANION GAP 12.2 (7.0-16.0); BASOPHIL 0 % (0-3); BUN - UREA NITROGEN 22 mg/dL (7-25); CALCIUM SERUM 9.1 mg/dL (8.6-10.3); CHLORIDE 111 mEq/L (98-107); CREATININE - SERUM 1.4 mg/dL (0.6-1.2); EOSINOPHIL 4 % (0-5); GLUCOSE 105 mg/dL (70-105); MONOCYTE 12 % (2-10); POTASSIUM SERUM 4.2 mEq/L (3.5-5.1); SODIUM SERUM 136 mEq/L (136-145)
--- NOTE | 2017-10-05 09:43 | Consultation ---
DATE OF CONSULTATION: 10/04/2017 REASON FOR CONSULTATION: Failure to thrive and wasting with weight loss. HISTORY OF PRESENT ILLNESS: This consult was obtained through the courtesy of Dr. Wen and Dr. Rush, for this 82-year-old with history of anemia, coronary artery disease, malnutrition, and glaucoma; admitted to the hospital for dysuria, found to be anemic. GI consult was called in for further evaluation, but the patient has been having failure to thrive for a long time, lost significant amount of weight. She is very cachectic. PAST MEDICAL HISTORY: Anemia, coronary artery disease, malnutrition, glaucoma. PAST SURGICAL HISTORY: Had leg surgery. SOCIAL HISTORY: Ex-smoker, quit years ago, nonalcoholic. Non-IV drug abuser. FAMILY HISTORY: Noncontributory. ALLERGIES: No known drug allergies. MEDICATIONS: The patient is on Tylenol, DuoNeb, Rocephin, iron, Robitussin, Culturelle, Xalatan, Ativan, mag oxide, mag sulfate, Lopressor, probiotic, morphine, and baclofen. REVIEW OF SYSTEMS: Significant amount of weight loss and weakness. PHYSICAL EXAMINATION: GENERAL: The patient is awake, oriented to self and place, in no acute distress, but very weak. VITAL SIGNS: Blood pressure is 135/75, heart rate 75, respiratory rate 18, and temperature is 97.2. HEAD AND NECK: Pupils reactive to light. Extraocular muscles could not be tested. Oral cavity, no lesion. NECK: Supple, no jugular venous distention, no carotid bruit, no lymph node. CHEST: Good respiratory movements. LUNGS: Showed few rhonchi. CARDIOVASCULAR: Regular rate and rhythm. No murmur or gallop. ABDOMEN: Soft, positive bowel sounds. EXTREMITIES: Lower extremities, no edema. Generally the patient is cachectic. CENTRAL NERVOUS SYSTEM: Grossly nonfocal. LABORATORY DATA: Hemoglobin was down to 6.8 yesterday, after transfusion 10.1. Liver enzymes were normal. IMPRESSION: An 82-year-old with anemia and failure to thrive. ASSESSMENT: 1. Anemia. The patient stated she had endoscopy and colonoscopy at another facility a few months ago, so we will get records. Meanwhile, continue to transfuse and monitor as needed and if there is active bleeding, consider scope. 2. Failure to thrive. Dr. Acosta has discussed with the patient about the PEG and discussed with her further as well, so we will start her on Remeron. We will see how she is doing. If she agreed to PEG, we can do it as a temporary measure until she gains some weight and gain some strength and then, can be taken out if she refused, then no option other than to continue with supplements and Remeron. Thank you, Dr. Wen and Dr. Rush, for allowing me to participate in the care of this patient. If you have any further questions, please let me know. JOB# [id number] ROSEANN
--- NOTE | 2017-10-05 10:16 | General Progress Note ---
Subjective - Review of Systems Service Date: 10/05/17 Subjective: Pt seen and eval. Resting in bed. No n,v,d or cp. Stool collected this am for occult blood. No fevers or chills. Pt had an EGD and Colonoscopy about 6 months ago apparently. She's decided against PEG today. Will do hospice eval for fail to thrive. Objective - Results Result Diagrams: 10/05/17 06:25 10/05/17 06:25 Recent Labs: Laboratory Last Values WBC 4.8 Th/cmm (4.8-10.8) 10/05/17 06:25 RBC 3.05 Mil/cmm (3.80-5.20) L 10/05/17 06:25 Hgb 9.8 gm/dL (12-16) L 10/05/17 06:25 Hct 29.4 % (41.0-60) L 10/05/17 06:25 MCV 96.6 fl (81-100) 10/05/17 06:25 MCH 32.0 pg (27.0-31.0) H 10/05/17 06:25 MCHC Differential 33.2 pg (28.0-36.0) 10/05/17 06:25 RDW 20.5 % (11.5-20.0) H 10/05/17 06:25 Plt Count 106 Th/cmm (150-400) L 10/05/17 06:25 MPV 6.4 fl 10/05/17 06:25 Neutrophils % 46.5 % (40.0-80.0) 10/04/17 06:00 Band Neutrophils % 0 % (0-10) 10/05/17 06:25 Lymphocytes % 32.7 % (20.0-50.0) 10/04/17 06:00 Monocytes % 17.5 % (2.0-10.0) H 10/04/17 06:00 Eosinophils % 3.1 % (0.0-5.0) 10/04/17 06:00 Basophils % 0.2 % (0.0-2.0) 10/04/17 06:00 Neutrophils (Manual) 50 % (40-80) 10/05/17 06:25 Lymphocytes 34 % (20-50) 10/05/17 06:25 Monocytes 12 % (2-10) H 10/05/17 06:25 Eosinophils 4 % (0-5) 10/05/17 06:25 Basophils 0 % (0-3) 10/05/17 06:25 Platelet Estimate ADEQUATE (NORMAL) 10/03/17 09:40 PT 10.0 SECONDS (9.5-11.5) 10/01/17 11:00 INR 0.96 (0.5-1.4) 10/01/17 11:00 PTT (Actin FS) 25.7 SECONDS (26.0-38.0) L 10/01/17 11:00 Sodium 136 mEq/L (136-145) 10/05/17 06:25 Potassium 4.2 mEq/L (3.5-5.1) 10/05/17 06:25 Chloride 111 mEq/L (98-107) H 10/05/17 06:25 Carbon Dioxide 17.0 mEq/L (21.0-31.0) L 10/05/17 06:25 Anion Gap 12.2 (7.0-16.0) 10/05/17 06:25 BUN 22 mg/dL (7-25) 10/05/17 06:25 Creatinine 1.4 mg/dL (0.6-1.2) H 10/05/17 06:25 Est GFR ( Amer) TNP 10/05/17 06:25 Est GFR (Non-Af Amer) TNP 10/05/17 06:25 BUN/Creatinine Ratio 15.7 10/05/17 06:25 Glucose 105 mg/dL (70-105) 10/05/17 06:25 POC Glucose 116 MG/DL (70 - 105) H 10/02/17 07:35 Whole Bld Lactic Acid 1.68 mmol/L (0.60-1.99) 10/01/17 11:00 Calcium 9.1 mg/dL (8.6-10.3) 10/05/17 06:25 Magnesium 2.0 mg/dL (1.9-2.7) 10/01/17 11:00 Total Bilirubin 0.3 mg/dL (0.3-1.0) 10/01/17 11:00 AST 17 U/L (13-39) 10/01/17 11:00 ALT 6 U/L (7-52) L 10/01/17 11:00 Alkaline Phosphatase 67 U/L (34-104) 10/01/17 11:00 Creatine Kinase 41 U/L (30-223) 10/01/17 11:00 Troponin I 0.01 ng/mL (0.01-0.05) 10/01/17 11:00 Total Protein 8.9 gm/dL (6.0-8.3) H 10/01/17 11:00 Albumin 3.4 gm/dL (3.7-5.3) L 10/01/17 11:00 Globulin 5.5 gm/dL 10/01/17 11:00 Albumin/Globulin Ratio 0.6 (1.0-1.8) L 10/01/17 11:00 Urine Source MIDSTREAM 10/01/17 11:10 Urine Color RED 10/01/17 11:10 Urine Clarity HAZY (CLEAR) 10/01/17 11:10 Urine pH 6.5 (4.6 - 8.0) 10/01/17 11:10 Ur Specific [place] 1.015 (1.005-1.030) 10/01/17 11:10 Urine Protein 30 mg/dL (NEGATIVE) H 10/01/17 11:10 Urine Glucose (UA) NEGATIVE mg/dL (NEGATIVE) 10/01/17 11:10 Urine Ketones NEGATIVE mg/dL (NEGATIVE) 10/01/17 11:10 Urine Blood LARGE (NEGATIVE) H 10/01/17 11:10 Urine Nitrate POSITIVE (NEGATIVE) H 10/01/17 11:10 Urine Bilirubin NEGATIVE (NEGATIVE) 10/01/17 11:10 Urine Urobilinogen 1.0 E.U./dL (0.2 - 1.0) 10/01/17 11:10 Ur Leukocyte Esterase LARGE (NEGATIVE) H 10/01/17 11:10 Urine RBC >100 /hpf (0-5) H 10/01/17 11:10 Urine WBC 6-10 /hpf (0-5) H 10/01/17 11:10 Ur Epithelial Cells FEW /lpf (FEW) 10/01/17 11:10 Urine Bacteria MANY /hpf (NONE SEEN) H 10/01/17 11:10 Stool Occult Blood POSITIVE (NEGATIVE) H 10/03/17 07:57 Blood Type A POSITIVE 10/03/17 12:40 Antibody Screen NEGATIVE 10/03/17 12:40 Crossmatch See Detail 10/03/17 12:40 - Physical Exam Vitals and I&O: Vital Signs Temp 97.7 F 10/05/17 04:00 Pulse 62 10/05/17 07:00 Resp 14 10/05/17 07:00 BP 160/84 10/05/17 04:00 Pulse Ox 99 10/05/17 07:00 Intake & Output 10/04/17 10/05/17 10/05/17 18:59 06:59 18:59 Intake Total 1450 150 Balance 1450 150 Weight (lbs) 40.823 kg 40.823 kg Intake: Intake, IV Amount 1050 Sodium Chloride 0.9% 1, 1000 000 ml @ 75 mls/hr IV . [id number] [facility] Rx#:[id number] cefTRIAXone 1 gm In 50 Dextrose 5% 50 ml @ 100 mls/hr IV Q24HR [facility] Rx#: [id number] Oral 400 150 Other: # Voids 2 3 # Bowel Movements 0 1 Weight Source Bedscale Bedscale Active Medications: Current Medications Acetaminophen (Tylenol) 650 mg PO Q6H PRN PRN Reason: HEADACHE/TEMP ABOVE 100F Stop: 11/30/17 13:37 Albuterol/Ipratropium (Duoneb Neb) 3 ml HHN Q4HRT PRN PRN Reason: Shortness of Breath Stop: 12/03/17 01:31 Brimonidine Tartrate (Alphagan 0.2% Ophth Soln) 1 drop EACH EYE BID [facility] Stop: 11/30/17 16:59 Last Admin: 10/04/17 17:22 Dose: 1 drop Dorzolamide HCl (Trusopt 2% Ophth Soln) 1 drop EACH EYE BID [facility] Stop: 11/30/17 16:59 Last Admin: 10/04/17 17:21 Dose: 1 drop Ferrous Sulfate (Iron) 325 mg PO DAILY [facility] Stop: 12/01/17 08:59 Last Admin: 10/04/17 08:32 Dose: 325 mg Guaifenesin/Dextromethorphan (Robitussin Dm) 10 ml PO Q4H PRN PRN Reason: Cough Stop: 12/03/17 01:30 Last Admin: 10/05/17 01:23 Dose: 10 ml Ceftriaxone Sodium 1 gm/ (Dextrose) 50 mls @ 100 mls/hr IV Q24HR [facility] Stop: 11/30/17 14:59 Last Infusion: 10/04/17 17:35 Dose: Infused Magnesium Sulfate (Magnesium Sulfate Premix) 2 gm in 50 mls @ 25 mls/hr IV DAILY PRN PRN Reason: Magnesium level less than 1.6 Stop: 11/30/17 13:37 Potassium Chloride (Potassium Chloride) 40 meq in 200 mls @ 50 mls/hr IV DAILY PRN PRN Reason: K < 3.2 Stop: 11/30/17 15:51 Dextrose/Sodium Chloride (D5-0.9%Ns) 1,000 mls @ 50 mls/hr IV .Q20H [facility] Stop: 12/03/17 20:18 Last Admin: 10/04/17 21:17 Dose: 50 mls/hr Lactobacillus Rhamnosus (Culturelle 15b) 1 each PO DAILY [facility] Stop: 12/01/17 10:59 Last Admin: 10/04/17 08:32 Dose: 1 each Latanoprost (Xalatan 0.005% Ophth Soln) 1 drop EACH EYE DAILY [facility] Stop: 12/01/17 08:59 Last Admin: 10/04/17 08:32 Dose: 1 drop Lorazepam (Ativan) 1 mg IVP Q4HR PRN; Protocol PRN Reason: Anxiety Stop: 11/30/17 13:37 Last Admin: 10/04/17 02:34 Dose: 1 mg Magnesium Oxide (Mag-Oxide) 400 mg PO BID PRN PRN Reason: Mg less than 1.9 Stop: 11/30/17 13:37 Metoprolol Tartrate (Lopressor) 25 mg PO BID [facility] Stop: 11/30/17 16:59 Last Admin: 10/04/17 17:21 Dose: 25 mg Mirtazapine (Remeron) 15 mg PO HS [facility]; Protocol Stop: 12/03/17 20:59 Last Admin: 10/04/17 21:54 Dose: Not Given Miscellaneous (Probiotic Screen) 1 ea MC PRN PRN PRN Reason: PROTOCOL Stop: 12/01/17 10:17 Morphine Sulfate (Morphine) 1 mg IVP Q4H PRN PRN Reason: Severe Pain Stop: 11/30/17 13:37 Mupirocin (Bactroban Oint) 1 appl NS BID [facility] Stop: 10/07/17 09:01 Last Admin: 10/04/17 17:22 Dose: 1 appl Ondansetron HCl (Zofran) 4 mg IVP Q6H PRN PRN Reason: Nausea / Vomiting Stop: 11/30/17 13:37 Potassium Chloride (Klor-Con) 40 meq PO DAILY PRN PRN Reason: k level less than 3.5 Stop: 11/30/17 13:37 Zolpidem Tartrate (Ambien) 10 mg PO HS PRN PRN Reason: Insomnia Stop: 11/30/17 13:37 General: Cooperative, No acute distress, Other (cachectic, temporal wasting) HEENT: PERRLA Neck: Supple, JVD Cardiovascular: Regular rate, Normal S1, Normal S2 Lungs: Clear to auscultation Abdomen: Bowel sounds, Soft Extremities: Other (no edema, atrophied muscles) Neurological: Other (muscle strength 4/5) Assessment/Plan - Assessment Assessment: Klebsielliea Pneumoniae UTI Severe Anemia VMN Hyponatremia Muscle weakness Unsteady gait Fail to Thrive - Plan Plan: on Rocephin 1 gm IV daily. FU on urine culture. On iv fluids. Stool OB positive. HgB stable. GI following Pt had an EGD and Colonoscopy about 6 months ago apparently. She's decided against PEG today. Will do hospice eval for fail to thrive. Nutritional Asmnt/Malnutr-PDOC - Dietary Evaluation Malnutrition Findings (Please click <Entered> for more info): Nutritional Asmnt/Malnutrition Start: 10/02/17 17: 19 Text: Status: Complete Freq: Protocol: Document 10/02/17 17:19 LCHENG (Rec: 10/02/17 17:33 [email or web address] Nutritional Asmnt/Malnutrition Patient General Information Nutritional Screening High Risk Consult Diagnosis severe anemia Pertinent Medical Hx/Surgical Hx CAD, malnutrition, anemia, glaucauma Subjective Information Consult received for low weight. BMI 14 noted. Pt seen lying in bed at time of visit, awake and alert. Pt stated appetite no good. Pt has no teeth noted, but pt denied chowing problem on regular textured food. Per EMR, PO intake 50% of dinner last night. Pt appeared very skinny , visible fat wasting under cheek bone. Current Diet Order/ Nutrition Support regular Pertinent Medications Iron, culturelle, nacl 0.9% Pertinent Labs 10/02 Na 134, BUN 32, Cr 1.8, glucose 91, POC 116 10/01 glucose 134 Nutritional Hx/Data Height 1.63 m Height (Calculated Centimeters) 162.6 Current Weight (lbs) 37.648 kg Weight (Calculated Kilograms) 37.6 Weight (Calculated Grams) 56002.2 [place] Body Weight 120 % [place] Body Weight 69 Body Mass Index (BMI) 14.2 Weight Status Approriate GI Symptoms GI Symptoms None Last BM not indicated Difficult in: None Skin Integrity/Comment: scar to coccyx, scab to 2nd toe Current %PO Poor (25-49%) Estimated Nutritional Goals BEE in Kcals: Using Current wt Calories/Kcals/Kg 30-35 Kcals Calculated 9125-4381 Protein: Using Current wt Protein g/k.2-1.4 Protein Calculated 46-53 Fluid: ml 1140-1330ml (1ml/kcal) Nutritional Problem 1. Problem Problem underweight Etiology hx of malnutrition Signs/Symptoms: BMI 14 Malnutrition Alert Body Fat Depletion (Severe) Mod to Severe Depletion Muscle Mass (Non-Severe) Mild Depletion Is there a minimum of two criteria Yes selected? Query Text:Check all the applicable criteria. A minimum of two criteria are recommended for diagnosis of either severe or non-severe malnutrition. Malnutrition Related to Morbid Obesity Malnutrition related to morbid obesity No Intervention/Recommendation Comments 1. Recommend mech soft chopped food d/t pt has no teeth. Add Boost Plus BID with breakfast and lunch, magic cup with dinner. [facility] notified. 2. Monitor PO intake, wt, labs and skin integrity 3. F/U as high risk in 2-3 days, 10/04-10/05 Expected Outcomes/Goals Expected Outcomes/Goals 1. PO intake to meet at least 75% of nutritional needs. 2. Wt stability, change forward to IBW, skin to remain intact, labs to approach WNL.
[2017-10-05] MEDS: Ferrous Sulfate 325 MG TAB PO SCH (10:27)
[2017-10-05] MEDS: Lactobacillus Rhamnosus GG 15 Billion CFU CAP.SPRINK PO SCH (10:28)
[2017-10-05] MEDS: D5-0.9%NS 1,000 ML IV SCH (17:43)
[2017-10-06 07:10] LABS: HEMATOCRIT 29.6 % (41.0-60); HEMOGLOBIN 10.1 gm/dL (12-16); MANUAL DIFF REQUIRED? YES; MEAN CELL VOLUME 93.8 fl (81-100); MEAN CORPUSCULAR HGB CONC 34.1 pg (28.0-36.0); MEAN PLATELET VOLUME 6.6 fl; PLATELET COUNT 123 Th/cmm (150-400); RED BLOOD COUNT 3.15 Mil/cmm (3.80-5.20); RED CELL DISTRIBUTION WIDTH 19.1 % (11.5-20.0); WHITE BLOOD COUNT 5.3 Th/cmm (4.8-10.8)
[2017-10-06 07:40] LABS: ANION GAP 10.6 (7.0-16.0); BUN - UREA NITROGEN 21 mg/dL (7-25); CALCIUM SERUM 8.9 mg/dL (8.6-10.3); CARBON DIOXIDE 20.5 mEq/L (21.0-31.0); CHLORIDE 110 mEq/L (98-107); CREATININE - SERUM 1.4 mg/dL (0.6-1.2); GLUCOSE 112 mg/dL (70-105); POTASSIUM SERUM 4.1 mEq/L (3.5-5.1); SODIUM SERUM 137 mEq/L (136-145)
[2017-10-06 08:09] LABS: BAND NEUTROPHILE 0 % (0-10); EOSINOPHIL 1 % (0-5); LYMPHOCYTE 39 % (20-50); MONOCYTE 15 % (2-10); NEUTROPHILS 45 % (40-80); TOTAL CELLS COUNTED 100
[2017-10-06 08:10] LABS: BASOPHIL 0 % (0-3)
[2017-10-06] MEDS: Ferrous Sulfate 325 MG TAB PO SCH (08:46)
[2017-10-06] MEDS: Lactobacillus Rhamnosus GG 15 Billion CFU CAP.SPRINK PO SCH (08:47)
--- NOTE | 2017-10-06 09:00 | General Progress Note ---
Subjective - Review of Systems Service Date: 10/06/17 Subjective: Pt seen and eval. Resting in bed. No n,v,d or cp. Stool collected this am for occult blood. No fevers or chills. Pt had an EGD and Colonoscopy about 6 months ago apparently. She's decided against PEG . Will do hospice eval for fail to thrive. [place] is the closest relative. Objective - Results Result Diagrams: 10/06/17 06:48 10/06/17 06:48 Recent Labs: Laboratory Last Values WBC 5.3 Th/cmm (4.8-10.8) 10/06/17 06:48 RBC 3.15 Mil/cmm (3.80-5.20) L 10/06/17 06:48 Hgb 10.1 gm/dL (12-16) L 10/06/17 06:48 Hct 29.6 % (41.0-60) L 10/06/17 06:48 MCV 93.8 fl (81-100) 10/06/17 06:48 MCH 32.0 pg (27.0-31.0) H 10/06/17 06:48 MCHC Differential 34.1 pg (28.0-36.0) 10/06/17 06:48 RDW 19.1 % (11.5-20.0) 10/06/17 06:48 Plt Count 123 Th/cmm (150-400) L 10/06/17 06:48 MPV 6.6 fl 10/06/17 06:48 Neutrophils % 46.5 % (40.0-80.0) 10/04/17 06:00 Band Neutrophils % 0 % (0-10) 10/06/17 06:48 Lymphocytes % 32.7 % (20.0-50.0) 10/04/17 06:00 Monocytes % 17.5 % (2.0-10.0) H 10/04/17 06:00 Eosinophils % 3.1 % (0.0-5.0) 10/04/17 06:00 Basophils % 0.2 % (0.0-2.0) 10/04/17 06:00 Neutrophils (Manual) 45 % (40-80) 10/06/17 06:48 Lymphocytes 39 % (20-50) 10/06/17 06:48 Monocytes 15 % (2-10) H 10/06/17 06:48 Eosinophils 1 % (0-5) 10/06/17 06:48 Basophils 0 % (0-3) 10/06/17 06:48 Platelet Estimate ADEQUATE (NORMAL) 10/03/17 09:40 PT 10.0 SECONDS (9.5-11.5) 10/01/17 11:00 INR 0.96 (0.5-1.4) 10/01/17 11:00 PTT (Actin FS) 25.7 SECONDS (26.0-38.0) L 10/01/17 11:00 Sodium 137 mEq/L (136-145) 10/06/17 06:48 Potassium 4.1 mEq/L (3.5-5.1) 10/06/17 06:48 Chloride 110 mEq/L (98-107) H 10/06/17 06:48 Carbon Dioxide 20.5 mEq/L (21.0-31.0) L 10/06/17 06:48 Anion Gap 10.6 (7.0-16.0) 10/06/17 06:48 BUN 21 mg/dL (7-25) 10/06/17 06:48 Creatinine 1.4 mg/dL (0.6-1.2) H 10/06/17 06:48 Est GFR ( Amer) TNP 10/06/17 06:48 Est GFR (Non-Af Amer) TNP 10/06/17 06:48 BUN/Creatinine Ratio 15.0 10/06/17 06:48 Glucose 112 mg/dL (70-105) H 10/06/17 06:48 POC Glucose 116 MG/DL (70 - 105) H 10/02/17 07:35 Whole Bld Lactic Acid 1.68 mmol/L (0.60-1.99) 10/01/17 11:00 Calcium 8.9 mg/dL (8.6-10.3) 10/06/17 06:48 Magnesium 2.0 mg/dL (1.9-2.7) 10/01/17 11:00 Total Bilirubin 0.3 mg/dL (0.3-1.0) 10/01/17 11:00 AST 17 U/L (13-39) 10/01/17 11:00 ALT 6 U/L (7-52) L 10/01/17 11:00 Alkaline Phosphatase 67 U/L (34-104) 10/01/17 11:00 Creatine Kinase 41 U/L (30-223) 10/01/17 11:00 Troponin I 0.01 ng/mL (0.01-0.05) 10/01/17 11:00 Total Protein 8.9 gm/dL (6.0-8.3) H 10/01/17 11:00 Albumin 3.4 gm/dL (3.7-5.3) L 10/01/17 11:00 Globulin 5.5 gm/dL 10/01/17 11:00 Albumin/Globulin Ratio 0.6 (1.0-1.8) L 10/01/17 11:00 Urine Source MIDSTREAM 10/01/17 11:10 Urine Color RED 10/01/17 11:10 Urine Clarity HAZY (CLEAR) 10/01/17 11:10 Urine pH 6.5 (4.6 - 8.0) 10/01/17 11:10 Ur Specific [place] 1.015 (1.005-1.030) 10/01/17 11:10 Urine Protein 30 mg/dL (NEGATIVE) H 10/01/17 11:10 Urine Glucose (UA) NEGATIVE mg/dL (NEGATIVE) 10/01/17 11:10 Urine Ketones NEGATIVE mg/dL (NEGATIVE) 10/01/17 11:10 Urine Blood LARGE (NEGATIVE) H 10/01/17 11:10 Urine Nitrate POSITIVE (NEGATIVE) H 10/01/17 11:10 Urine Bilirubin NEGATIVE (NEGATIVE) 10/01/17 11:10 Urine Urobilinogen 1.0 E.U./dL (0.2 - 1.0) 10/01/17 11:10 Ur Leukocyte Esterase LARGE (NEGATIVE) H 10/01/17 11:10 Urine RBC >100 /hpf (0-5) H 10/01/17 11:10 Urine WBC 6-10 /hpf (0-5) H 10/01/17 11:10 Ur Epithelial Cells FEW /lpf (FEW) 10/01/17 11:10 Urine Bacteria MANY /hpf (NONE SEEN) H 10/01/17 11:10 Stool Occult Blood POSITIVE (NEGATIVE) H 10/03/17 07:57 Blood Type A POSITIVE 05/31/18 12:40 Antibody Screen NEGATIVE 10/03/17 12:40 Crossmatch See Detail 10/03/17 12:40 - Physical Exam Vitals and I&O: Vital Signs Temp 98.2 F 10/06/17 04:00 Pulse 71 10/06/17 08:46 Resp 14 10/06/17 08:02 BP 148/82 10/06/17 08:46 Pulse Ox 96 10/06/17 08:02 Intake & Output 10/05/17 10/06/17 10/06/17 18:59 06:59 18:59 Intake Total 1000 Balance 1000 Weight (lbs) 40.823 kg 40.37 kg Intake: Intake, IV Amount 1000 D5-0.9%Ns 1,000 ml @ 50 1000 mls/hr IV .Q20H [facility] Rx#: [id number] Other: # Voids 2 Weight Source Estimated Bedscale Active Medications: Current Medications Acetaminophen (Tylenol) 650 mg PO Q6H PRN PRN Reason: HEADACHE/TEMP ABOVE 100F Stop: 11/30/17 13:37 Albuterol/Ipratropium (Duoneb Neb) 3 ml HHN Q4HRT PRN PRN Reason: Shortness of Breath Stop: 12/03/17 01:31 Brimonidine Tartrate (Alphagan 0.2% Ophth Soln) 1 drop EACH EYE BID [facility] Stop: 11/30/17 16:59 Last Admin: 10/06/17 08:47 Dose: 1 drop Dorzolamide HCl (Trusopt 2% Ophth Soln) 1 drop EACH EYE BID [facility] Stop: 11/30/17 16:59 Last Admin: 10/06/17 08:47 Dose: 1 drop Ferrous Sulfate (Iron) 325 mg PO DAILY [facility] Stop: 12/01/17 08:59 Last Admin: 10/06/17 08:46 Dose: 325 mg Guaifenesin/Dextromethorphan (Robitussin Dm) 10 ml PO Q4H PRN PRN Reason: Cough Stop: 12/03/17 01:30 Last Admin: 10/05/17 17:42 Dose: 10 ml Ceftriaxone Sodium 1 gm/ (Dextrose) 50 mls @ 100 mls/hr IV Q24HR [facility] Stop: 11/30/17 14:59 Last Admin: 10/05/17 17:41 Dose: 100 mls/hr Magnesium Sulfate (Magnesium Sulfate Premix) 2 gm in 50 mls @ 25 mls/hr IV DAILY PRN PRN Reason: Magnesium level less than 1.6 Stop: 11/30/17 13:37 Potassium Chloride (Potassium Chloride) 40 meq in 200 mls @ 50 mls/hr IV DAILY PRN PRN Reason: K < 3.2 Stop: 11/30/17 15:51 Dextrose/Sodium Chloride (D5-0.9%Ns) 1,000 mls @ 50 mls/hr IV .Q20H [facility] Stop: 12/03/17 20:18 Last Admin: 10/05/17 17:43 Dose: 50 mls/hr Lactobacillus Rhamnosus (Culturelle 15b) 1 each PO DAILY [facility] Stop: 12/01/17 10:59 Last Admin: 10/06/17 08:47 Dose: 1 each Latanoprost (Xalatan 0.005% Ophth Soln) 1 drop EACH EYE DAILY [facility] Stop: 12/01/17 08:59 Last Admin: 10/06/17 08:47 Dose: 1 drop Lorazepam (Ativan) 1 mg IVP Q4HR PRN; Protocol PRN Reason: Anxiety Stop: 11/30/17 13:37 Last Admin: 10/04/17 02:34 Dose: 1 mg Magnesium Oxide (Mag-Oxide) 400 mg PO BID PRN PRN Reason: Mg less than 1.9 Stop: 11/30/17 13:37 Metoprolol Tartrate (Lopressor) 25 mg PO BID [facility] Stop: 11/30/17 16:59 Last Admin: 10/06/17 08:46 Dose: 25 mg Mirtazapine (Remeron) 15 mg PO HS [facility]; Protocol Stop: 12/03/17 20:59 Last Admin: 10/05/17 21:53 Dose: 15 mg Miscellaneous (Probiotic Screen) 1 ea MC PRN PRN PRN Reason: PROTOCOL Stop: 12/01/17 10:17 Morphine Sulfate (Morphine) 1 mg IVP Q4H PRN PRN Reason: Severe Pain Stop: 11/30/17 13:37 Mupirocin (Bactroban Oint) 1 appl NS BID [facility] Stop: 10/07/17 09:01 Last Admin: 10/06/17 08:48 Dose: 1 appl Ondansetron HCl (Zofran) 4 mg IVP Q6H PRN PRN Reason: Nausea / Vomiting Stop: 11/30/17 13:37 Potassium Chloride (Klor-Con) 40 meq PO DAILY PRN PRN Reason: k level less than 3.5 Stop: 11/30/17 13:37 Zolpidem Tartrate (Ambien) 10 mg PO HS PRN PRN Reason: Insomnia Stop: 11/30/17 13:37 General: Cooperative, No acute distress, Other (cachectic, temporal wasting) HEENT: PERRLA Neck: Supple, JVD Cardiovascular: Regular rate, Normal S1, Normal S2 Lungs: Clear to auscultation Abdomen: Bowel sounds, Soft Extremities: Other (no edema, atrophied muscles) Neurological: Other (muscle strength 4/5) Assessment/Plan - Assessment Assessment: Klebsielliea Pneumoniae UTI Severe Anemia VMN Hyponatremia Muscle weakness Unsteady gait Fail to Thrive - Plan Plan: on Rocephin 1 gm IV daily. FU on urine culture. On iv fluids. Stool OB positive. HgB stable. GI following Pt had an EGD and Colonoscopy about 6 months ago apparently. She's decided against PEG. Will do hospice eval for fail to thrive. Nutritional Asmnt/Malnutr-PDOC - Dietary Evaluation Malnutrition Findings (Please click <Entered> for more info): Nutritional Asmnt/Malnutrition Start: 10/02/17 17: 19 Text: Status: Complete Freq: Protocol: Document 10/02/17 17:19 LCHENG (Rec: 10/02/17 17:33 [email or web address]) Nutritional Asmnt/Malnutrition Patient General Information Nutritional Screening High Risk Consult Diagnosis severe anemia Pertinent Medical Hx/Surgical Hx CAD, malnutrition, anemia, glaucauma Subjective Information Consult received for low weight. BMI 14 noted. Pt seen lying in bed at time of visit, awake and alert. Pt stated appetite no good. Pt has no teeth noted, but pt denied chowing problem on regular textured food. Per EMR, PO intake 50% of dinner last night. Pt appeared very skinny , visible fat wasting under cheek bone. Current Diet Order/ Nutrition Support regular Pertinent Medications Iron, culturelle, nacl 0.9% Pertinent Labs 10/02 Na 134, BUN 32, Cr 1.8, glucose 91, POC 116 5/29 glucose 134 Nutritional Hx/Data Height 1.63 m Height (Calculated Centimeters) 162.6 Current Weight (lbs) 37.648 kg Weight (Calculated Kilograms) 37.6 Weight (Calculated Grams) 17571.2 [place] Body Weight 120 % [place] Body Weight 69 Body Mass Index (BMI) 14.2 Weight Status Approriate GI Symptoms GI Symptoms None Last BM not indicated Difficult in: None Skin Integrity/Comment: scar to coccyx, scab to 2nd toe Current %PO Poor (25-49%) Estimated Nutritional Goals BEE in Kcals: Using Current wt Calories/Kcals/Kg 30-35 Kcals Calculated 6730-9929 Protein: Using Current wt Protein g/k.2-1.4 Protein Calculated 46-53 Fluid: ml 1140-1330ml (1ml/kcal) Nutritional Problem 1. Problem Problem underweight Etiology hx of malnutrition Signs/Symptoms: BMI 14 Malnutrition Alert Body Fat Depletion (Severe) Mod to Severe Depletion Muscle Mass (Non-Severe) Mild Depletion Is there a minimum of two criteria Yes selected? Query Text:Check all the applicable criteria. A minimum of two criteria are recommended for diagnosis of either severe or non-severe malnutrition. Malnutrition Related to Morbid Obesity Malnutrition related to morbid obesity No Intervention/Recommendation Comments 1. Recommend mech soft chopped food d/t pt has no teeth. Add Boost Plus BID with breakfast and lunch, magic cup with dinner. [facility] notified. 2. Monitor PO intake, wt, labs and skin integrity 3. F/U as high risk in 2-3 days, 10/04-10/05 Expected Outcomes/Goals Expected Outcomes/Goals 1. PO intake to meet at least 75% of nutritional needs. 2. Wt stability, change forward to IBW, skin to remain intact, labs to approach WNL.
[2017-10-07] MEDS: D5-0.9%NS 1,000 ML IV SCH ×2 (00:22→18:35)
[2017-10-07 05:30] LABS: MEAN CORPUSCULAR HEMOGLOBIN 31.9 pg (27.0-31.0); NEUTROPHILE ABSOLUTE 2.4 Th/cmm (1.8-8.0)
[2017-10-07 05:36] LABS: % BASOPHILS 0.3 % (0.0-2.0); % EOSINOPHILS 4.3 % (0.0-5.0); % LYMPHOCYTES 34.7 % (20.0-50.0); % MONOCYTES 18.5 % (2.0-10.0); % NEUTROPHILS 42.2 % (40.0-80.0); EOSINOPHILE ABSOLUTE 0.2 Th/cmm (0.1-0.4); HEMATOCRIT 28.8 % (41.0-60); HEMOGLOBIN 9.7 gm/dL (12-16); MEAN CELL VOLUME 94.9 fl (81-100); MEAN CORPUSCULAR HGB CONC 33.6 pg (28.0-36.0); MEAN PLATELET VOLUME 6.4 fl; MONOCYTE ABSOLUTE 1.1 Th/cmm (0.3-1.0); PLATELET COUNT 117 Th/cmm (150-400); RED BLOOD COUNT 3.04 Mil/cmm (3.80-5.20); RED CELL DISTRIBUTION WIDTH 19.8 % (11.5-20.0); WHITE BLOOD COUNT 5.7 Th/cmm (4.8-10.8)
[2017-10-07 05:45] LABS: INR 1.06 (0.5-1.4)
[2017-10-07] MEDS: Lactobacillus Rhamnosus GG 15 Billion CFU CAP.SPRINK PO SCH (08:48)
[2017-10-07] MEDS: Ferrous Sulfate 325 MG TAB PO SCH (08:48)
--- NOTE | 2017-10-07 10:29 | General Progress Note ---
Subjective - Review of Systems Service Date: 10/07/17 Events since last encounter: Pt seen and eval. Resting in bed. No n,v,d or cp. Stool collected this am for occult blood. No fevers or chills. Pt had an EGD and Colonoscopy about 6 months ago apparently. She's decided against PEG . Will do hospice eval for fail to thrive. [facility] is the closest relative. Refused G tube placement. Hospice eval is pending Subjective: The patient was seen and evaluated. The patient does not appear to be in any acute pain or distress. Denies chest pain, shortness of breath, abdominal pain , dysuria, or falls Objective - Results Result Diagrams: 10/07/17 04:45 10/06/17 06:48 Recent Labs: Laboratory Last Values WBC 5.7 Th/cmm (4.8-10.8) 10/07/17 04:45 RBC 3.04 Mil/cmm (3.80-5.20) L 10/07/17 04:45 Hgb 9.7 gm/dL (12-16) L 10/07/17 04:45 Hct 28.8 % (41.0-60) L 10/07/17 04:45 MCV 94.9 fl (81-100) 10/07/17 04:45 MCH 31.9 pg (27.0-31.0) H 10/07/17 04:45 MCHC Differential 33.6 pg (28.0-36.0) 10/07/17 04:45 RDW 19.8 % (11.5-20.0) 10/07/17 04:45 Plt Count 117 Th/cmm (150-400) L 10/07/17 04:45 MPV 6.4 fl 10/07/17 04:45 Neutrophils % 42.2 % (40.0-80.0) 10/07/17 04:45 Band Neutrophils % 0 % (0-10) 10/06/17 06:48 Lymphocytes % 34.7 % (20.0-50.0) 10/07/17 04:45 Monocytes % 18.5 % (2.0-10.0) H 10/07/17 04:45 Eosinophils % 4.3 % (0.0-5.0) 10/07/17 04:45 Basophils % 0.3 % (0.0-2.0) 10/07/17 04:45 Neutrophils (Manual) 45 % (40-80) 10/06/17 06:48 Lymphocytes 39 % (20-50) 10/06/17 06:48 Monocytes 15 % (2-10) H 10/06/17 06:48 Eosinophils 1 % (0-5) 10/06/17 06:48 Basophils 0 % (0-3) 10/06/17 06:48 Platelet Estimate ADEQUATE (NORMAL) 10/03/17 09:40 PT 11.0 SECONDS (9.5-11.5) 10/07/17 04:45 INR 1.06 (0.5-1.4) 10/07/17 04:45 PTT (Actin FS) 25.7 SECONDS (26.0-38.0) L 10/01/17 11:00 Sodium 137 mEq/L (136-145) 10/06/17 06:48 Potassium 4.1 mEq/L (3.5-5.1) 10/06/17 06:48 Chloride 110 mEq/L (98-107) H 10/06/17 06:48 Carbon Dioxide 20.5 mEq/L (21.0-31.0) L 10/06/17 06:48 Anion Gap 10.6 (7.0-16.0) 10/06/17 06:48 BUN 21 mg/dL (7-25) 10/06/17 06:48 Creatinine 1.4 mg/dL (0.6-1.2) H 10/06/17 06:48 Est GFR ( Amer) TNP 10/06/17 06:48 Est GFR (Non-Af Amer) TNP 10/06/17 06:48 BUN/Creatinine Ratio 15.0 10/06/17 06:48 Glucose 112 mg/dL (70-105) H 10/06/17 06:48 POC Glucose 116 MG/DL (70 - 105) H 10/02/17 07:35 Whole Bld Lactic Acid 1.68 mmol/L (0.60-1.99) 10/01/17 11:00 Calcium 8.9 mg/dL (8.6-10.3) 10/06/17 06:48 Magnesium 2.0 mg/dL (1.9-2.7) 10/01/17 11:00 Total Bilirubin 0.3 mg/dL (0.3-1.0) 10/01/17 11:00 AST 17 U/L (13-39) 10/01/17 11:00 ALT 6 U/L (7-52) L 10/01/17 11:00 Alkaline Phosphatase 67 U/L (34-104) 10/01/17 11:00 Creatine Kinase 41 U/L (30-223) 10/01/17 11:00 Troponin I 0.01 ng/mL (0.01-0.05) 10/01/17 11:00 Total Protein 8.9 gm/dL (6.0-8.3) H 10/01/17 11:00 Albumin 3.4 gm/dL (3.7-5.3) L 10/01/17 11:00 Globulin 5.5 gm/dL 10/01/17 11:00 Albumin/Globulin Ratio 0.6 (1.0-1.8) L 10/01/17 11:00 Urine Source MIDSTREAM 10/01/17 11:10 Urine Color RED 10/01/17 11:10 Urine Clarity HAZY (CLEAR) 10/01/17 11:10 Urine pH 6.5 (4.6 - 8.0) 10/01/17 11:10 Ur Specific [place] 1.015 (1.005-1.030) 10/01/17 11:10 Urine Protein 30 mg/dL (NEGATIVE) H 10/01/17 11:10 Urine Glucose (UA) NEGATIVE mg/dL (NEGATIVE) 10/01/17 11:10 Urine Ketones NEGATIVE mg/dL (NEGATIVE) 10/01/17 11:10 Urine Blood LARGE (NEGATIVE) H 10/01/17 11:10 Urine Nitrate POSITIVE (NEGATIVE) H 10/01/17 11:10 Urine Bilirubin NEGATIVE (NEGATIVE) 10/01/17 11:10 Urine Urobilinogen 1.0 E.U./dL (0.2 - 1.0) 10/01/17 11:10 Ur Leukocyte Esterase LARGE (NEGATIVE) H 10/01/17 11:10 Urine RBC >100 /hpf (0-5) H 10/01/17 11:10 Urine WBC 6-10 /hpf (0-5) H 10/01/17 11:10 Ur Epithelial Cells FEW /lpf (FEW) 10/01/17 11:10 Urine Bacteria MANY /hpf (NONE SEEN) H 10/01/17 11:10 Stool Occult Blood POSITIVE (NEGATIVE) H 10/03/17 07:57 Blood Type A POSITIVE 10/03/17 12:40 Antibody Screen NEGATIVE 10/03/17 12:40 Crossmatch See Detail 10/03/17 12:40 - Physical Exam Vitals and I&O: Vital Signs Temp 97.2 F 10/07/17 07:44 Pulse 60 10/07/17 07:44 Resp 20 10/07/17 07:48 BP 144/66 10/07/17 07:44 Pulse Ox 100 10/07/17 07:44 Intake & Output 10/06/17 10/07/17 10/07/17 18:59 06:59 18:59 Intake Total 1450 100 Balance 1450 100 Weight (lbs) 40.37 kg 42.093 kg Intake: Intake, IV Amount 1050 D5-0.9%Ns 1,000 ml @ 50 1000 mls/hr IV .Q20H COUNT INCLUDES THE [facility] Rx#: [id number] cefTRIAXone 1 gm In 50 Dextrose 5% 50 ml @ 100 mls/hr IV Q24HR COUNT INCLUDES THE [facility] Rx#: [id number] Oral 400 100 Other: # Voids 2 2 # Bowel Movements 1 0 Weight Source Bedscale Bedscale Active Medications: Current Medications Acetaminophen (Tylenol) 650 mg PO Q6H PRN PRN Reason: HEADACHE/TEMP ABOVE 100F Stop: 11/30/17 13:37 Albuterol/Ipratropium (Duoneb Neb) 3 ml HHN Q4HRT PRN PRN Reason: Shortness of Breath Stop: 12/03/17 01:31 Brimonidine Tartrate (Alphagan 0.2% Ophth Soln) 1 drop EACH EYE BID COUNT INCLUDES THE [facility] Stop: 11/30/17 16:59 Last Admin: 10/07/17 10:18 Dose: 1 drop Dorzolamide HCl (Trusopt 2% Ophth Soln) 1 drop EACH EYE BID COUNT INCLUDES THE [facility] Stop: 11/30/17 16:59 Last Admin: 10/07/17 10:18 Dose: 1 drop Ferrous Sulfate (Iron) 325 mg PO DAILY COUNT INCLUDES THE [facility] Stop: 12/01/17 08:59 Last Admin: 10/07/17 08:48 Dose: Not Given Guaifenesin/Dextromethorphan (Robitussin Dm) 10 ml PO Q4H PRN PRN Reason: Cough Stop: 12/03/17 01:30 Last Admin: 10/05/17 17:42 Dose: 10 ml Ceftriaxone Sodium 1 gm/ (Dextrose) 50 mls @ 100 mls/hr IV Q24HR DEEPA Stop: 11/30/17 14:59 Last Infusion: 10/06/17 17:24 Dose: Infused Magnesium Sulfate (Magnesium Sulfate Premix) 2 gm in 50 mls @ 25 mls/hr IV DAILY PRN PRN Reason: Magnesium level less than 1.6 Stop: 11/30/17 13:37 Potassium Chloride (Potassium Chloride) 40 meq in 200 mls @ 50 mls/hr IV DAILY PRN PRN Reason: K < 3.2 Stop: 11/30/17 15:51 Dextrose/Sodium Chloride (D5-0.9%Ns) 1,000 mls @ 50 mls/hr IV .Q20H DEEPA Stop: 12/03/17 20:18 Last Admin: 10/07/17 00:22 Dose: 50 mls/hr Lactobacillus Rhamnosus (Culturelle 15b) 1 each PO DAILY COUNT INCLUDES THE [facility] Stop: 12/01/17 10:59 Last Admin: 10/07/17 08:48 Dose: Not Given Latanoprost (Xalatan 0.005% [facility] Soln) 1 drop EACH EYE DAILY COUNT INCLUDES THE [facility] Stop: 12/01/17 08:59 Last Admin: 10/07/17 10:18 Dose: 1 drop Lorazepam (Ativan) 1 mg IVP Q4HR PRN; Protocol PRN Reason: Anxiety Stop: 11/30/17 13:37 Last Admin: 10/04/17 02:34 Dose: 1 mg Magnesium Oxide (Mag-Oxide) 400 mg PO BID PRN PRN Reason: Mg less than 1.9 Stop: 11/30/17 13:37 Metoprolol Tartrate (Lopressor) 25 mg PO BID DEEPA Stop: 11/30/17 16:59 Last Admin: 10/07/17 08:48 Dose: Not Given Mirtazapine (Remeron) 15 mg PO HS DEEPA; Protocol Stop: 12/03/17 20:59 Last Admin: 10/06/17 21:42 Dose: 15 mg Miscellaneous (Probiotic Screen) 1 ea MC PRN PRN PRN Reason: PROTOCOL Stop: 12/01/17 10:17 Morphine Sulfate (Morphine) 1 mg IVP Q4H PRN PRN Reason: Severe Pain Stop: 11/30/17 13:37 Ondansetron HCl (Zofran) 4 mg IVP Q6H PRN PRN Reason: Nausea / Vomiting Stop: 11/30/17 13:37 Potassium Chloride (Klor-Con) 40 meq PO DAILY PRN PRN Reason: k level less than 3.5 Stop: 11/30/17 13:37 Zolpidem Tartrate (Ambien) 10 mg PO HS PRN PRN Reason: Insomnia Stop: 11/30/17 13:37 General: Cooperative, No acute distress, Other (cachectic, temporal wasting) HEENT: PERRLA Neck: Supple, JVD Cardiovascular: Regular rate, Normal S1, Normal S2 Lungs: Clear to auscultation Abdomen: Bowel sounds, Soft Extremities: Other (no edema, atrophied muscles) Neurological: Other (muscle strength 4/5) Assessment/Plan - Assessment Assessment: Klebsielliea Pneumoniae UTI Severe Anemia VMN Hyponatremia Muscle weakness Unsteady gait Fail to Thrive - Plan Plan: on Rocephin 1 gm IV daily. Culture revealed klebsiellla On iv fluids. Stool OB positive. HgB stable. GI following Pt had an EGD and Colonoscopy about 6 months ago apparently. She's decided against PEG. Will do hospice eval for fail to thrive. Nutritional Asmnt/Malnutr-PDOC - Dietary Evaluation Malnutrition Findings (Please click <Entered> for more info): Nutritional Asmnt/Malnutrition Start: 10/02/17 17: 19 Text: Status: Complete Freq: Protocol: Document 10/02/17 17:19 LCHENG (Rec: 10/02/17 17:33 LCHENG [email or web address]) Nutritional Asmnt/Malnutrition Patient General Information Nutritional Screening High Risk Consult Diagnosis severe anemia Pertinent Medical Hx/Surgical Hx CAD, malnutrition, anemia, glaucauma Subjective Information Consult received for low weight. BMI 14 noted. Pt seen lying in bed at time of visit, awake and alert. Pt stated appetite no good. Pt has no teeth noted, but pt denied chowing problem on regular textured food. Per EMR, PO intake 50% of dinner last night. Pt appeared very skinny , visible fat wasting under cheek bone. Current Diet Order/ Nutrition Support regular Pertinent Medications Iron, culturelle, nacl 0.9% Pertinent Labs 10/02 Na 134, BUN 32, Cr 1.8, glucose 91, POC 116 10/01 glucose 134 Nutritional Hx/Data Height 1.63 m Height (Calculated Centimeters) 162.6 Current Weight (lbs) 37.648 kg Weight (Calculated Kilograms) 37.6 Weight (Calculated Grams) 27886.2 [place] Body Weight 120 % [place] Body Weight 69 Body Mass Index (BMI) 14.2 Weight Status Approriate GI Symptoms GI Symptoms None Last BM not indicated Difficult in: None Skin Integrity/Comment: scar to coccyx, scab to 2nd toe Current %PO Poor (25-49%) Estimated Nutritional Goals BEE in Kcals: Using Current wt Calories/Kcals/Kg 30-35 Kcals Calculated 1276-6118 Protein: Using Current wt Protein g/k.2-1.4 Protein Calculated 46-53 Fluid: ml 1140-1330ml (1ml/kcal) Nutritional Problem 1. Problem Problem underweight Etiology hx of malnutrition Signs/Symptoms: BMI 14 Malnutrition Alert Body Fat Depletion (Severe) Mod to Severe Depletion Muscle Mass (Non-Severe) Mild Depletion Is there a minimum of two criteria Yes selected? Query Text:Check all the applicable criteria. A minimum of two criteria are recommended for diagnosis of either severe or non-severe malnutrition. Malnutrition Related to Morbid Obesity Malnutrition related to morbid obesity No Intervention/Recommendation Comments 1. Recommend mech soft chopped food d/t pt has no teeth. Add Boost Plus BID with breakfast and lunch, magic cup with dinner. CB Randall notified. 2. Monitor PO intake, wt, labs and skin integrity 3. F/U as high risk in 2-3 days, 10/04-10/05 Expected Outcomes/Goals Expected Outcomes/Goals 1. PO intake to meet at least 75% of nutritional needs. 2. Wt stability, change forward to IBW, skin to remain intact, labs to approach WNL.
[2017-10-07] MEDS ORDERED: ceFAZolin 1 GM in Sodium Chloride 0.9% 50 ML IV SCH (12:15)
[2017-10-07] MEDS ORDERED: Propofol 10 mg/mL 20mL Vial **SURGERY USE ONLY IV ONE (12:40)
[2017-10-07] MEDS ORDERED: ceFAZolin 1 GM in Sodium Chloride 0.9% 50 ML IV ONE (13:15)
--- NOTE | 2017-10-07 17:13 | Operative Report ---
DATE OF SURGERY: 10/07/2017 INPATIENT EGD AND G-TUBE REPORT PROCEDURE PERFORMED: EGD with G-tube insertion. ENDOSCOPIST: Nayan Estrella M.D. PREOPERATIVE DIAGNOSES: Failure to thrive and anorexia. POSTOPERATIVE DIAGNOSIS: Successful G-tube placement. INDICATION: The patient is an 82-year-old female who has recently had EGD and colonoscopy for examination of anemia; however, she has been losing weight and has been unable to take in enough nutrition by mouth in order to maintain her weight and thus GI is asked to place a G-tube. The patient was counseled on the risks and benefits of this procedure and is in agreement with the G-tube placement at this time. CONSENT: Informed consent was obtained from the patient. The risks and benefits of the procedure were discussed include but not limited to infection, bleeding, perforation, need for surgery, cardiopulmonary complications, missed pathology, peritonitis, G-tube related bleeding, premature G-tube dislodgement, visceral organ perforation related to G-tube insertion and . The patient indicated her understanding of these risks and wished to go for the procedure and signed the consent form. ANESTHESIA: The procedure was done in the main operating room under the care of the general anesthesiologist. PROCEDURE IN DETAIL: The patient was in the supine position. After initiation of general anesthesia, mouthpiece was inserted and secured. Next, a gastroscope was introduced into the mouth and guided under direct visualization into the esophagus, stomach and then duodenum. The examined portions of the esophagus and stomach and duodenum were essentially normal with mild gastritis noted. There was no ulcer or mass lesion in the stomach, duodenum or esophageal areas. Next, an appropriate place for the G-tube was found along the lesser curve of the gastric body. This was confirmed by transillumination as well as a poking from the skin side. A 22 gauge needle was used to insert subcutaneous lidocaine into the skin in this area. This needle was then used to enter into the stomach under direct visualization from the scope without resistance. Next, a small incision was made along the skin at this area and a trocar was placed through the incision into the stomach under direct visualization from the scope. The trocar was secured in place by a snare device and the needle was removed. Next, a guidewire was inserted through the trocar and was grasped with the snare device by the scope. The guidewire and the scope were then withdrawn from the patient's mouth and G-tube 20-Ukrainian in size was affixed to the guidewire in a secure fashion. Using pull technique the new 20-Ukrainian G-tube was then pulled down through the esophagus and snugged to the abdominal wall. Antibiotic ointment was placed in the skin site at this point and the external bumper was then secured in location. The scope was then reintroduced into the mouth and guided under direct visualization of the esophagus and stomach and confirmed the appropriate location of the internal bumper within the lesser curve of the stomach. At this point, the procedure was complete. Of note, the patient did receive 1 gram of Ancef prior to the start of the procedure. RECOMMENDATIONS: 1. The G-tube can be used immediately for water flushes and medications. 2. Can start feeds in 12 hours time at 10 mL an hour and increase by 10 mL per hour until the goal rate is reached. 3. Hold for any gastric residuals greater than 100 mL an hour and check residuals every 6 hours. 4. Can consider an abdominal binder if the patient is uncomfortable or wants to pull this tube. Thank you for allowing me to participate in this patient's care. Please call with any further questions. JOB# [id number]
[2017-10-08 05:28] LABS: % BASOPHILS 0.4 % (0.0-2.0); % EOSINOPHILS 2.8 % (0.0-5.0); % LYMPHOCYTES 26.6 % (20.0-50.0); % MONOCYTES 14.8 % (2.0-10.0); % NEUTROPHILS 55.4 % (40.0-80.0); EOSINOPHILE ABSOLUTE 0.2 Th/cmm (0.1-0.4); HEMATOCRIT 29.4 % (41.0-60); HEMOGLOBIN 9.8 gm/dL (12-16); LYMPHOCYTE ABSOLUTE 1.5 Th/cmm (1.5-3.0); MEAN CELL VOLUME 94.3 fl (81-100); MEAN CORPUSCULAR HEMOGLOBIN 31.5 pg (27.0-31.0); MEAN CORPUSCULAR HGB CONC 33.5 pg (28.0-36.0); MEAN PLATELET VOLUME 6.4 fl; MONOCYTE ABSOLUTE 0.8 Th/cmm (0.3-1.0); PLATELET COUNT 113 Th/cmm (150-400); RED BLOOD COUNT 3.11 Mil/cmm (3.80-5.20); RED CELL DISTRIBUTION WIDTH 19.5 % (11.5-20.0); WHITE BLOOD COUNT 5.5 Th/cmm (4.8-10.8)
[2017-10-08] MEDS: Lactobacillus Rhamnosus GG 15 Billion CFU CAP.SPRINK PO SCH (09:45)
[2017-10-08] MEDS: Ferrous Sulfate 325 MG TAB PO SCH (09:45)
--- NOTE | 2017-10-08 21:32 | Discharge Summary ---
DATE OF DISCHARGE: 10/08/2017 ADMITTING DIAGNOSES: Severe anemia, vasomotor nephropathy, hyponatremia, UTI, unsteady gait, muscle weakness. DISCHARGE DIAGNOSES: Klebsiella pneumonia UTI, severe malnutrition, vasomotor nephropathy, hyponatremia, muscle weakness, unsteady gait, failure to thrive, and dysphagia. HISTORY OF PRESENT ILLNESS: This is an 82-year-old female who presented from [place] with the chief complaint of severe anemia. The patient was admitted to Med/Surg. She was transfused packed red blood cells and her hemoglobin increased to 9.8 and it has continued to hold steady around the high 9s, low 10s. She is not having any bleeding at this time. The patient was seen by GI. She refused an EGD and colonoscopy because the patient recently had one performed in the last 6 months. The patient had lost a significant amount of weight and has been on multiple appetite stimulants; however, none of them have stimulated her appetite and she has continued to lose weight and is now cachectic. I had a long discussion with the patient at bedside about the possibility of G-tube versus hospice. The patient originally chose to go to the hospice route, but changed her mind and GI reevaluated her and placed a G-tube without complication. She tolerated the procedure well. She will be started on tube feeds and transferred back to [facility]. Pending how she does at [place], the patient stated that she may be open to a hospice evaluation at a later point in time. Medications reviewed and reconciled. Vital signs are 98.1, 81, 150/74, and 17. CONDITION: Stable. PROCEDURES: G-tube placement. ACTIVITY: As tolerated. DIET: Continue current diet as well as supplemental tube feeding. DISPOSITION: [place] stable. Follow up with Dr. Wen upon arrival. JOB# [id number]
== END 2017-10-08 14:20 | DRG 811 ==
LOC: ER 10:20 → MSI 13:15
PROVIDERS: ADMIT General Practice; ATTEND General Practice
PROC: 30233N1 Transfusion of Nonautologous Red Blood Cells into Peripheral Vein, Percutaneous Approach (ICD-10-PCS; principal; 2017-10-03)
PROC: 0DH68UZ Insertion of Feeding Device into Stomach, Via Natural or Artificial Opening Endoscopic (ICD-10-PCS; 2017-10-07)
DX: D64.9 Anemia, unspecified (principal); N17.0 Acute kidney failure with tubular necrosis; E43 Unspecified severe protein-calorie malnutrition; N39.0 Urinary tract infection, site not specified; E87.1 Hypo-osmolality and hyponatremia; R64 Cachexia; Z68.1 Body mass index [BMI] 19.9 or less, adult; I10 Essential (primary) hypertension; E11.9 Type 2 diabetes mellitus without complications; I25.10 Atherosclerotic heart disease of native coronary artery without angina pectoris; E78.5 Hyperlipidemia, unspecified; J44.9 Chronic obstructive pulmonary disease, unspecified; K21.9 Gastro-esophageal reflux disease without esophagitis; F03.90 Unspecified dementia, unspecified severity, without behavioral disturbance, psychotic disturbance, mood disturbance, and anxiety; E86.0 Dehydration; G89.29 Other chronic pain; K29.70 Gastritis, unspecified, without bleeding; H40.9 Unspecified glaucoma; K59.00 Constipation, unspecified; M62.81 Muscle weakness (generalized); R26.9 Unspecified abnormalities of gait and mobility; R62.7 Adult failure to thrive; B96.1 Klebsiella pneumoniae [K. pneumoniae] as the cause of diseases classified elsewhere; R13.10 Dysphagia, unspecified; Z82.49 Family history of ischemic heart disease and other diseases of the circulatory system; Z83.3 Family history of diabetes mellitus; Z89.512 Acquired absence of left leg below knee
CPT/HCPCS: 36415-UA; 71045-TC; 80048-TC; 80053-TC; 81001-TC; 82270-TC; 82550-TC; 82948-90; 83605; 83735-TC; 84484-TC; 85007-TC; 85025-TC; 85027-TC; 85610-TC; 85730-TC; 86850-TC; 86900-TC; 86901-TC; 86922-TC; 87086-90; 93005; 94760; C9113; J0690; J0696; J1644; J1815; J2060; J2704; J7030; J7040; J7042; P9016; X7704; Z7506; Z7508; Z7610